=== PATIENT | female | born 1970 | race Caucasian/White ===

== ENCOUNTER 2016-12-15 14:13 | Inpatient (IN) ==
--- NOTE | 2016-12-15 18:16 | General Surg History&Physical ---
<Andrea Mcnally - Last Filed: 12/15/16 18:09> Date of Encounter: 12/15/16 Time of Encounter: 06:00 Assessment and Plan (1) Enterocutaneous fistula Current Visit: Yes Status: Acute The assessment and plan as outlined above was discussed with the patient and/or family members who expressed understanding and agreement. All questions were answered. The patient is severely protein malnourished. Will get PICC line placed. Begin TPN with elemental clear liquid nutritional supplement. When the patient is in an anabolic state will plan for exploratory laparotomy with small bowel resection. The patient understands that this may take up to one week. (2) Protein-calorie malnutrition, severe Current Visit: No Status: Acute The assessment and plan as outlined above was discussed with the patient and/or family members who expressed understanding and agreement. All questions were answered. PICC line to begin TPN with elemental clear liquid nutritional supplement. (3) Chronic pancreatitis Current Visit: No Status: Acute The assessment and plan as outlined above was discussed with the patient and/or family members who expressed understanding and agreement. All questions were answered. Not having active pain at this time. Patient undergoes stenting, which is next due in January. Qualifiers: Pancreatitis type: alcohol induced Qualified Code(s): K86.0 - Alcohol- induced chronic pancreatitis (4) Cirrhosis with alcoholism Current Visit: No Status: Acute The assessment and plan as outlined above was discussed with the patient and/or family members who expressed understanding and agreement. All questions were answered. The patient has not had any alcohol for the past week. She has been started on disulfiram. Qualifiers: Ascites presence: without ascites Qualified Code(s): K70.30 - Alcoholic cirrhosis of liver without ascites (5) Anxiety and depression Current Visit: No Status: Chronic The assessment and plan as outlined above was discussed with the patient and/or family members who expressed understanding and agreement. All questions were answered. The patient was recently started on lamotrigine for mood stabilization. Continue home medications. (6) GERD (gastroesophageal reflux disease) Current Visit: No Status: Chronic The assessment and plan as outlined above was discussed with the patient and/or family members who expressed understanding and agreement. All questions were answered. Continue home medications of protonix. Qualifiers: Esophagitis presence: esophagitis presence not specified Qualified Code(s) : K21.9 - Gastro-esophageal reflux disease without esophagitis History of Present Illness Chief complaint: small bowel problem HPI: Ms. Hernandez is a 46 year old female with PMH of COPD, GERD, HTN, thyroid disease , anxiety, depression, cirrhosis with alcoholism, and chronic pancreatitis who presented to wound clinic for followup of a draining cutaneous fistula. She expressed concern that she really wanted this problem fixed. It was discussed with Dr. De Leon that she would not be able to tolerate the procedure well in her current state of health. It was recommended that she be admitted for PICC line placement for TPN and elemental clear liquid nutritional supplement for several days to a week to increase her strength. Once the patient was in an anabolic state she would undergo exploratory laparotomy with small bowel resection to fix her chronic gastrocutaneous fistula. The patient reports that she has had a problem with her wound since March 2016 and has not had adequate healing. She continues to drain from her fistula. She reports that her appetite and dietary intake has improved since she had last been seen in wound clinic and the patient expressed that she felt as if she was getting better, but her wound would not heal. The patient reports that she has chronic pancreatitis as well and has to have stents replaced every 2 months due to pain. Currently she denies being in any pain, but reports that she feels nervous being in the hospital. She was recently started on lamotrigine and disulfiram and states she has not had any alcohol in the past week. Past Med Surg Social Fam HX - Past Medical History Medical history: asthma, cirrhosis, COPD, GERD, hepatitis, hypertension, thyroid disease, other Psychiatric history: anxiety, depression - Past Surgical History Surgical History: no surgical history, other (pancreatic stent placements) - Social History Smoking Status: Current every day smoker Smokeless Tobacco Status: No Alcohol use: heavy Drug use: none - Family History Grandmother Adopted: No Family Member Ethnicity: Non- Living Status: Hx Family Cardiac Disorders: No Hx Family Respiratory Disorders: No Hx Family Cancer: No Hx Family GI Disorders: No Hx Family Endocrine Disorder: No Hx Family Neuromuscular Disorders: No Hx Family Neurologic Disorders: No Hx Family HEENT Disorders: No Hx Family Autoimmune Disorders: No Medications and Allergies Dicyclomine [Bentyl] 10 mg PO QID 06/06/16 [History] Folic Acid 1 mg PO DAILY 06/06/16 [History] Megestrol Acetate [Megace] 40 mg PO BID 06/06/16 [History] Pantoprazole Sodium [Protonix] 40 mg PO QAM 06/06/16 [History] Docusate Sodium 100 mg PO DAILY 11/17/16 [History] Multivitamin/Iron/Folic Acid [Centrum Complete Multivit Tab] 1 each PO DAILY 03/28 [History] Albuterol Sulfate [Albuterol Inhaler] 2 puff IH Q6H PRN 12/15/16 [History] Budesonide/Formoterol 160/4.5 [Symbicort 160/4.5] 4.5 aerosol IH BID 12/15/16 [ History] Disulfiram [Antabuse] 500 mg PO DAILY 12/15/16 [History] Lamotrigine [Lamictal] 25 mg PO DAILY 12/15/16 [History] Lipase/Protease/Amylase [Creon Dr 12,000 Units Capsule] 1 each PO DAILY [History] Allergies No Known Allergies Allergy (Verified 12/15/16 14:36) Review of Systems All systems PM: A 10-system review of systems was performed and is negative for pertinent findings except as documented above in the HPI. - Constitutional fatigue, headache(s), weakness, no chills, no fever(s) - Cardiovascular dyspnea, no chest pain, no edema, no irregular heart rhythm, no palpitations - Respiratory cough (nonproductive), dyspnea, no wheezing - Gastrointestinal no bloating, no constipation, no diarrhea, no melena, no nausea, no vomiting - Genitourinary Genitourinary: no dysuria - Musculoskeletal muscle cramps (lower extremities) - Integumentary wounds (right groin), no rash - Psychiatric anxiety - Hematologic/Lymphatic easy bruising, no easy bleeding General Surgery Exam Initial Vital Signs Temp Pulse Resp BP Pulse Ox 98.4 F 88 15 143/86 97 12/15/16 14:37 12/15/16 14:37 12/15/16 14:37 12/15/16 14:37 12/15/16 14:37 - General physical appearance cachectic, chronically ill, other (anxious) - Eyes normal ocular movement - ENT normal mucosa, atraumatic, normocephalic - Neck trachea midline - Respiratory normal respiratory effort, clear to auscultation - Cardiovascular Cardiovascular exam: Present: NR, tachycardia, no murmurs/rubs/gallops - Abdomen Abdomen general surgery: Present: bowel sounds present, soft, non tender, wound (right groin. fistula present. not actively draining at this time. mild erythema present surrounding the wound) - Integumentary Integumentary general surgery: Present: warm and dry, other (see wound above) - Neurologic Present: CN 2-12 grossly intact - Musculoskeletal Present: normal posture - Psychiatric Psychiatric general surgery: Present: A&Ox3, other (anxious) Results - Labs All other labs normal. - Attending Attestation I examined this patient and my medical decision-making was reviewed with the PATTERN[employer]/PA/Advanced Practice Nurse/Resident Physician. I agree with the documented findings, disposition and treatment plan as described except to the extent set forth below. <Waqas De Leon - Last Filed: 12/16/16 06:48> Date of Encounter: 12/16/16 History of Present Illness HPI: Ms. Hernandez is a 46 year old female Review of Systems All systems PM: A 10-system review of systems was performed and is negative for pertinent findings except as documented above in the HPI. General Surgery Exam Initial Vital Signs Temp Pulse Resp BP Pulse Ox 98.4 F 88 15 143/86 97 12/15/16 14:37 12/15/16 14:37 12/15/16 14:37 12/15/16 14:37 12/15/16 14:37 Results - Labs 12/15/16 18:08 12/15/16 18:08 Abnormal lab results RBC 3.80 M/mcL (3.82-4.97) L 12/15/16 18:08 RDW 14.7 % (11.5-14.5) H 12/15/16 18:08 Chloride 110 mEq/L (98-109) H 12/15/16 18:08 Glucose 218 mg/dL (70-99) H 12/15/16 18:08 Alkaline Phosphatase 200 Units/L (38-126) H 12/15/16 18:08 Albumin 3.2 g/dL (3.5-5.0) L 12/15/16 18:08 Globulin 3.9 g/dL (2.4-3.5) H 12/15/16 18:08 Albumin/Globulin Ratio 0.8 (1.1-2.2) L 12/15/16 18:08 Ur Specific [place] > 1.030 (1.010-1.025) H 12/15/16 21:25 Urine Glucose (UA) >=1000 mg/dL (Normal) H 12/15/16 21:25 All other labs normal. - Attending Attestation The patient is seen and evaluated. Complex issues with malnutrition secondary to substance abuse, cirrhosis, ETOH withdrawl, incarcerated inguinal hernia and entero-cutaneous fistula. Plan PICC, TPN, Clear liquid complex nutrition. Exploratory laparotomy when stable. Waqas De Leon MD FACS
[2016-12-15] MEDS ORDERED: Albuterol 2.5 MG/3 ML NEBULIZER IH PRN (18:27)
[2016-12-15 18:28] LABS: Basophils % 0.3 %; Eosinophils # 0.3 K/mcL (0.0-0.6); Eosinophils % 2.9 %; Hematocrit 37.4 % (35.3-44.9); Hemoglobin 12.6 g/dL (11.5-15.4); Immature Granulocytes % 0.5 % (0-4); Lymphocytes # 2.3 K/mcL (0.6-4.6); Lymphocytes % 26.6 %; Mean Corpuscular HGB Conc 33.7 g/dL (31.6-35.5); Mean Corpuscular Hemoglobin 33.2 pg (28.0-33.3); Mean Corpuscular Volume 98.4 fL (83.0-100.0); Mean Platelet Volume 9.9 fL (9.4-12.4); Monocytes % 11.7 %; Platelet Count 301 K/mcL (140-400); Red Cell Distribution Width 14.7 % (11.5-14.5)
[2016-12-15 18:32] LABS: INR 1.1; Prothrombin Time 11.7 Seconds (9.4-12.1)
[2016-12-15 18:34] LABS: Activated Partial Thrombo Time 28.6 Seconds (26.0-36.0)
[2016-12-15 18:38] LABS: Alanine Aminotransferase 36 Units/L (0-55); Albumin 3.2 g/dL (3.5-5.0); Albumin/Globulin Ratio 0.8 (1.1-2.2); Alkaline Phosphatase 200 Units/L (38-126); Amylase 41 Units/L (25-125); Aspartate Amino Transferase 18 Units/L (5-34); BUN/Creatinine Ratio 19 (6-26); Bilirubin,Direct 0.1 mg/dL (0.0-0.5); Bilirubin,Indirect 0.1 mg/dL (0.0-1.2); Bilirubin,Total 0.2 mg/dL (0.2-1.2); Blood Urea Nitrogen 12 mg/dL (7-20); Calcium 8.8 mg/dL (8.6-10.8); Carbon Dioxide 20 mEq/L (19-29); Chloride 110 mEq/L (98-109); Globulin 3.9 g/dL (2.4-3.5); Glucose 218 mg/dL (70-99); Lipase 27 Units/L (8-78); Osmolality,Calculated 296 (280-300); Potassium 4.2 mEq/L (3.5-4.5); Sodium 140 mEq/L (136-145); Total Protein 7.1 g/dL (6.0-8.3); eGFR For African Americans > 60 (> 60); eGFR For Non-African Americans > 60 (> 60)
--- NOTE | 2016-12-15 18:47 | Emergency Department Note ---
Disposition Clinical Impression: Fistula, Malnutrition Disposition: Admitted As Inpatient Condition: Good Referrals: Janice Almendarez CNP [Primary Care Provider] - Forms: Work/School Release, ED Satisfaction Letter Abdominal Pain HPI - General Chief Complaint: ED General Medical Stated Complaint: small bowel issues Time Seen by Provider: 12/15/16 17:41 Source: patient Mode of arrival: ambulatory Limitations: no limitations Nursing Notes Reviewed: Yes Vital Signs Reviewed: Yes - History of Present Illness HPI Narrative: Patient is a 46-year-old female with a enterocutaneous fistula is here from wound clinic for hospital admission. She states she has chronic pain in this area. No bleeding or purulent discharge from her fistula. She states she is comfortable at this time has no request for analgesia or anti-emetics. Pt Subjective Complaint: abdominal pain Onset (ago): month(s) Consistency: intermittent Location: RLQ (Right groin) Pain Scale: 0 Quality: aching Radiation: none Improves with: nothing Worsens with: nothing Associated symptoms: Reports: denies other symptoms Treatments prior to arrival: other (Chronic wound care) - Related Data Home Medications Medication Instructions Recorded Confirmed Dicyclomine [Bentyl] 10 mg PO QID 06/06/16 11/17/16 Folic Acid 1 mg PO DAILY 06/06/16 11/17/16 Megestrol Acetate [Megace] 40 mg PO DAILY 06/06/16 11/17/16 Pantoprazole Sodium [Protonix] 40 mg PO QAM 06/06/16 11/17/16 Albuterol Sulfate [Proair 90 mcg IH Q6H 11/17/16 11/17/16 Respiclick] Docusate Sodium 100 mg PO DAILY 11/17/16 11/17/16 Multivitamin/Iron/Folic Acid 1 each PO DAILY 11/17/16 11/17/16 [Centrum Complete Multivit Tab] Previous Rx's Medication Instructions Recorded DiphenhydraMINE [Benadryl] 25 mg PO Q8HR PRN #15 capsule 11/17/16 PredniSONE 60 mg PO DAILY #15 tablet 11/17/16 Allergies Allergy/AdvReac Type Severity Reaction Status Date / Time No Known Allergies Allergy Verified 12/15/16 14:36 All systems ED: reviewed and negative except as stated. Constitutional: Reports: weakness. Denies: fever, chills Gastrointestinal: Denies: nausea, vomiting Abdominal Pain PMH - Past Medical History Medical history: Reports: asthma, cirrhosis, COPD, GERD, hepatitis, hypertension , thyroid disease, other Female Surgical History: Reports: other MUSIC PROFESSOR history: Reports: endometriosis Psychiatric history: Reports: anxiety, depression - Social History Smoking status: Current every day smoker Alcohol use: Reports: heavy Drug use: Reports: none Physical Exam - General Limitations: no limitations General appearance: alert, in no apparent distress - Head Head exam: atraumatic, normocephalic, normal inspection - Eye Eye exam: Present: normal appearance, PERRL, EOMI - Expanded Eye Exam Pupils: Left: reactive - ENT ENT exam: normal exam, normal oropharynx, mucous membranes moist - Expanded ENT Exam External ear exam: Present: normal external inspection Mouth exam: Present: normal external inspection Teeth exam: Present: normal inspection Throat exam: Present: normal inspection - Neck Neck exam: Present: normal inspection, full ROM, trachea midline - Chest Chest inspection: Present: normal inspection, symmetric chest wall rise - Respiratory Respiratory exam: Present: normal lung sounds bilaterally - Cardiovascular Cardiovascular exam: Present: regular rate, normal rhythm, normal heart sounds - Abdominal Exam Abdominal exam: Present: soft, Non-Tender, normal bowel sounds. Absent: guarding, rebound - Extremities Exam Extremities exam: Present: normal inspection, full ROM. Absent: tenderness, pedal edema - Expanded Upper Extremity Exam Shoulder exam: Present: normal inspection, full ROM Arm exam: Present: normal inspection, full ROM Elbow exam: Present: normal inspection, full ROM Forearm/Wrist exam: Present: normal inspection, full ROM Hand exam: Present: normal inspection, full ROM Vascular exam: Normal: capillary refill, radial pulse - Expanded Lower Extremity Exam Hip/Pelvis exam: Present: normal inspection, full ROM Upper leg exam: Present: normal inspection, full ROM Knee exam: Present: normal inspection, full ROM Lower leg exam: Present: normal inspection, full ROM Ankle exam: Present: normal inspection, full ROM Foot/toe exam: Present: normal inspection, full ROM Neurovascular/Tendon exam: Absent: motor deficit, sensory deficit, tendon deficit - Back Exam Back exam: Present: normal inspection, full ROM. Absent: tenderness - Neurological Exam Neurological exam: Present: alert, oriented X3 - Expanded Neurological Exam Patient oriented to: Present: person, place, time Coma Scale Eye Opening: Spontaneous Coma Scale Motor Response: Obeys Commands Coma Scale Verbal Response: Oriented Coma Scale Total: 15 - Psychiatric Psychiatric exam: Present: normal affect, normal mood - Skin Skin exam: Present: warm, dry, intact, normal color Course Vital Signs Temperature 98.4 F 12/15/16 14:37 Pulse Rate 88 12/15/16 14:37 Respiratory Rate 15 12/15/16 14:37 Blood Pressure 143/86 12/15/16 14:37 O2 Sat by Pulse Oximetry 97 12/15/16 14:37 Temperature 98.4 F 12/15/16 14:37 Pulse Rate 88 12/15/16 14:37 Respiratory Rate 15 12/15/16 14:37 Blood Pressure 143/86 12/15/16 14:37 O2 Sat by Pulse Oximetry 97 12/15/16 14:37 Oxygen Delivery Oxygen Delivery Room Air Abdominal Pain - MDM Narrative Medical decision making narrative: DR. CALVILLO TO ADMIT TO HIS SERVICE - Differential Diagnosis Differential Diagnosis: Likely: abdominal pain non-specific, constipation, colonic obstruction, diverticulitis, gastroenteritis, hernia, ischemic bowel - Lab Data Lab results reviewed: Yes I reviewed the patient's lab results. Result diagrams: 12/15/16 18:08 12/15/16 18:08 Lab Results 12/15/16 12/15/16 12/15/16 Range/Units 18:08 18:08 18:08 WBC 8.7 (4.3-11.1) K/mcL RBC 3.80 L (3.82-4.97) M/mcL Hgb 12.6 (11.5-15.4) g/dL Hct 37.4 (35.3-44.9) % MCV 98.4 (83.0-100.0) fL MCH 33.2 (28.0-33.3) pg MCHC 33.7 (31.6-35.5) g/dL RDW 14.7 H (11.5-14.5) % Plt Count 301 (140-400) K/mcL MPV 9.9 (9.4-12.4) fL Immature Gran % 0.5 (0-4) % Seg Neutrophils % 58.0 % Lymphocytes % 26.6 % Monocytes % 11.7 % Eosinophils % 2.9 % Basophils % 0.3 % Neutrophils # 5.0 (1.6-8.9) K/mcL Lymphocytes # 2.3 (0.6-4.6) K/mcL Monocytes # 1.0 (0.0-1.3) K/mcL Eosinophils # 0.3 (0.0-0.6) K/mcL Basophils # 0.0 (0.0-0.2) K/mcL PT 11.7 (9.4-12.1) Seconds INR 1.1 APTT 28.6 (26.0-36.0) Seconds Sodium 140 (136-145) mEq/L Potassium 4.2 (3.5-4.5) mEq/L Chloride 110 H (98-109) mEq/L Carbon Dioxide 20 (19-29) mEq/L BUN 12 (7-20) mg/dL Creatinine 0.62 (0.57-1.11) mg/dL Est GFR ( Amer) > 60 (> 60) Est GFR (Non-Af Amer) > 60 (> 60) BUN/Creatinine Ratio 19 (6-26) Glucose 218 H (70-99) mg/dL Calculated Osmolality 296 (280-300) Calcium 8.8 (8.6-10.8) mg/dL Total Bilirubin 0.2 (0.2-1.2) mg/dL Direct Bilirubin 0.1 (0.0-0.5) mg/dL Indirect Bilirubin 0.1 (0.0-1.2) mg/dL AST 18 (5-34) Units/L ALT 36 (0-55) Units/L Alkaline Phosphatase 200 H (38-126) Units/L Serum Total Protein 7.1 (6.0-8.3) g/dL Albumin 3.2 L (3.5-5.0) g/dL Globulin 3.9 H (2.4-3.5) g/dL Albumin/Globulin Ratio 0.8 L (1.1-2.2) Amylase 41 (25-125) Units/L Lipase 27 (8-78) Units/L Ethyl Alcohol (0-10) mg/dL 12/15/16 Range/Units 18:08 WBC (4.3-11.1) K/mcL RBC (3.82-4.97) M/mcL Hgb (11.5-15.4) g/dL Hct (35.3-44.9) % MCV (83.0-100.0) fL MCH (28.0-33.3) pg MCHC (31.6-35.5) g/dL RDW (11.5-14.5) % Plt Count (140-400) K/mcL MPV (9.4-12.4) fL Immature Gran % (0-4) % Seg Neutrophils % % Lymphocytes % % Monocytes % % Eosinophils % % Basophils % % Neutrophils # (1.6-8.9) K/mcL Lymphocytes # (0.6-4.6) K/mcL Monocytes # (0.0-1.3) K/mcL Eosinophils # (0.0-0.6) K/mcL Basophils # (0.0-0.2) K/mcL PT (9.4-12.1) Seconds INR APTT (26.0-36.0) Seconds Sodium (136-145) mEq/L Potassium (3.5-4.5) mEq/L Chloride (98-109) mEq/L Carbon Dioxide (19-29) mEq/L BUN (7-20) mg/dL Creatinine (0.57-1.11) mg/dL Est GFR ( Amer) (> 60) Est GFR (Non-Af Amer) (> 60) BUN/Creatinine Ratio (6-26) Glucose (70-99) mg/dL Calculated Osmolality (280-300) Calcium (8.6-10.8) mg/dL Total Bilirubin (0.2-1.2) mg/dL Direct Bilirubin (0.0-0.5) mg/dL Indirect Bilirubin (0.0-1.2) mg/dL AST (5-34) Units/L ALT (0-55) Units/L Alkaline Phosphatase (38-126) Units/L Serum Total Protein (6.0-8.3) g/dL Albumin (3.5-5.0) g/dL Globulin (2.4-3.5) g/dL Albumin/Globulin Ratio (1.1-2.2) Amylase (25-125) Units/L Lipase (8-78) Units/L Ethyl Alcohol < 10 (0-10) mg/dL
[2016-12-15] MEDS ORDERED: Ondansetron ODT 4 MG TAB.RAPDIS SL PRN (21:06)
[2016-12-15] MEDS: *HR* OxyCODONE/APAP 5/325 TABLET PO PRN (21:26)
[2016-12-15] MEDS: Nicotine 21 MG PATCH.TD24 TD SCH (21:27)
[2016-12-15 21:37] LABS: Bilirubin,Urine Negative (Negative); Blood,Urine Negative (Negative); Clarity,Urine Clear (Clear); Color,Urine Yellow (Yellow); Glucose,Urine (UA) >=1000 mg/dL (Normal); Ketones,Urine Negative (Negative); Leukocyte Esterase,Urine Negative (Negative); Nitrite,Urine Negative (Negative); PH,Urine 6.5 pH Units (5.0-8.0); Protein,Urine Negative (Neg-Trace); Specific Gravity,Urine > 1.030 (1.010-1.025); Urobilinogen,Urine Normal (Normal)
[2016-12-15] MEDS: 0.9 % Sodium Chloride 1,000 ML IVC SCH (21:50)
[2016-12-16] MEDS: *HR* OxyCODONE/APAP 5/325 TABLET PO PRN ×4 (03:25→21:53)
--- NOTE | 2016-12-16 07:04 | General Surgery Progress Note ---
<Andrea Mcnally - Last Filed: 12/16/16 07:02> Date of Encounter: 12/16/16 Time of Encounter: 07:02 - Assessment and Plan (1) Enterocutaneous fistula Current Visit: Yes Status: Acute When the patient is in an anabolic state will plan for exploratory laparotomy with small bowel resection. The patient understands that this may take up to one week. PICC line to be inserted today. Cloth Printer consulted, will discuss starting the patient on clear elemental supplementation as well to maintain integrity of lymphatics of the bowel. Begin TPN once the PICC line has been placed. (2) Protein-calorie malnutrition, severe Current Visit: No Status: Acute See plan as above. (3) Chronic pancreatitis Current Visit: No Status: Acute Pain well controlled with oral analgesics. Qualifiers: Pancreatitis type: alcohol induced Qualified Code(s): K86.0 - Alcohol- induced chronic pancreatitis (4) Cirrhosis with alcoholism Current Visit: No Status: Acute The patient has not had any alcohol for the past week prior to admission. Librium ordered 10mg TID Qualifiers: Ascites presence: without ascites Qualified Code(s): K70.30 - Alcoholic cirrhosis of liver without ascites (5) Anxiety and depression Current Visit: No Status: Chronic The patient was recently started on lamotrigine for mood stabilization. Continue home medications. (6) GERD (gastroesophageal reflux disease) Current Visit: No Status: Chronic No active symptoms. Continue omeprazole. Qualifiers: Esophagitis presence: esophagitis presence not specified Qualified Code(s) : K21.9 - Gastro-esophageal reflux disease without esophagitis Subjective Patient reports: voiding w/o difficulty, flatus, no bowel movement, afebrile Narrative: This morning the patient states that she is having a little bit of abdominal discomfort. She reports it is the same as the pain she usually has from her chronic pancreatitis. The pain has responded well to oral pain medications. She was not able to sleep well last night, and states since stopping drinking her sleep has been fractured and intermittent. Objective Vital Signs - Last 8 Hours Temp Pulse Resp BP Pulse Ox 12/16/16 02:50 98.4 F 78 14 150/80 96 Intake and Output 12/15/16 12/15/16 12/16/16 15:59 23:59 07:59 Intake Total 480 / 480 Output Total 100 / 100 0 / 0 Balance 380 / 380 0 / 0 Intake: Oral 480 / 480 Output: Urine 100 / 100 0 / 0 Other: Weight 37.149 kg - General physical appearance no distress, cachectic, chronically ill - Eyes normal ocular movement - ENT normal mucosa - Neck Neck exam: trachea midline - Respiratory normal respiratory effort, clear to auscultation - Cardiovascular Cardiovascular exam: Present: RRR - Abdomen Abdomen: Present: bowel sounds present, soft, wound (right groin wound present. No active drainage at this time. Mild amount of surrounding erythema. Unchanged. ) Abdominal Tenderness: epigastic (tenderness to deep palpation) - Integumentary no rash - Neurologic CN 2-12 grossly intact - Musculoskeletal normal posture - Psychiatric oriented to time, oriented to person, oriented to place, speech is normal, memory intact - Labs 12/15/16 18:08 12/15/16 18:08 Consult Discharge Plan - Plan Referrals: Janice Almendarez, PHYSICIAN NON INVASIVE CARDIOLOGIST [Primary Care Provider] - - Attending Attestation I examined this patient and my medical decision-making was reviewed with the BATTERY STACKER/PA/Advanced Practice Nurse/Resident Physician. I agree with the documented findings, disposition and treatment plan as described except to the extent set forth below. <MoisesWaqas T - Last Filed: 12/17/16 06:44> Date of Encounter: 12/17/16 Objective Vital Signs - Last 8 Hours Temp Pulse Resp BP Pulse Ox 12/17/16 03:52 98.1 F 66 20 121/67 96 12/17/16 00:06 98.7 F 62 20 117/68 97 Intake and Output 12/16/16 12/16/16 12/17/16 15:59 23:59 07:59 Intake Total 2196 / 2196 952 / 952 Output Total 1100 / 1100 Balance 1096 / 1096 952 / 952 Intake: IV Fluids 1716 / 1716 112 / 112 0.9 % Sodium Chloride 1, 1716 / 1716 112 / 112 000 ML @ 100 mls/hr IVC . Q10H NICKI Rx#:[id number] Oral 480 / 480 840 / 840 Output: Urine 1100 / 1100 Other: Meal Lunch Dinner Percent of Meal Consumed 0% # Voids 1 1 Weight 39.14 kg Blood Glucose* 126 107 110 Patient Weight 12/17/16 23:59 Weight 39.14 kg - Labs 12/15/16 18:08 12/15/16 18:08 Diabetes panel 12/16/16 Range/Units 10:23 Triglycerides 70 (< 150) mg/dL Calcium panel 12/16/16 12/17/16 Range/Units 10:23 04:15 Phosphorus 3.1 5.9 H D (2.3-4.7) mg/dL - Attending Attestation The patient is seen and evaluated with the resident. Continue nutritional support until in positive nitrogen balance then proceed with surgical correction of the fistula. Agree with documentation Waqas De Leon MD FACS
[2016-12-16] MEDS: lamoTRIgine 25 MG TABLET PO SCH (08:25)
[2016-12-16] MEDS: Nicotine 21 MG PATCH.TD24 TD SCH (08:27)
[2016-12-16] MEDS: 0.9 % Sodium Chloride 1,000 ML IVC SCH ×2 (08:32→17:30)
[2016-12-16 10:56] LABS: Magnesium 1.8 mg/dL (1.6-2.6); Phosphorous 3.1 mg/dL (2.3-4.7)
[2016-12-16] MEDS ORDERED: D10% in Water 500 ML IV PRN (11:09)
[2016-12-16] MEDS ORDERED: Lidocaine -MPF 1% 5 ML AMPUL INFILT ONE (12:19)
[2016-12-16] MEDS ORDERED: *HR* Dextrose 50 % in Water (Syg) 50 ML SYRINGE IVP PRN (12:54)
[2016-12-16] MEDS ORDERED: Dextrose Gel 15 GM PO PRN ×2 (12:54)
[2016-12-16] MEDS ORDERED: D5% in Water 1,000 ML IV PRN (12:54)
[2016-12-16] MEDS ORDERED: Clinimix E 5%-15% SOLUTION 2,000 ML with MVI, adult with vitamin K 10 ML IV SCH (17:00)
[2016-12-16] MEDS: *HR* Heparin 5,000 UNIT/ML VIAL SQ SCH (17:30)
[2016-12-16] MEDS: Insulin LISPRO 300 UNITS/3 ML VIAL SQ SCH ×2 (17:35→21:54)
[2016-12-16] MEDS: Melatonin 3 MG TABLET PO SCH (20:28)
[2016-12-17] MEDS: Insulin LISPRO 300 UNITS/3 ML VIAL SQ SCH ×6 (01:36→21:18)
[2016-12-17] MEDS: *HR* OxyCODONE/APAP 5/325 TABLET PO PRN ×3 (04:56→18:54)
[2016-12-17] MEDS: *HR* Heparin 5,000 UNIT/ML VIAL SQ SCH ×2 (06:06→18:10)
--- NOTE | 2016-12-17 07:40 | General Surgery Progress Note ---
<Andrea Mcnally - Last Filed: 12/17/16 07:44> Date of Encounter: 12/17/16 Time of Encounter: 07:37 - Assessment and Plan (1) Enterocutaneous fistula Current Visit: Yes Status: Acute The patient is tolerating her clear ensure and TPN well. Her prealbumin the morning was normal. She has already progressed to being in an anabolic state. NPO at midnight. Exploratory laparotomy with small bowel resection tomorrow. Continue pain control. Continue GI prophylaxis. Continue DVT prophylaxis. (2) Protein-calorie malnutrition, severe Current Visit: No Status: Acute Good response to clear ensure with TPN. See plan as above. (3) Chronic pancreatitis Current Visit: No Status: Acute Pain well controlled with oral analgesics. Qualifiers: Pancreatitis type: alcohol induced Qualified Code(s): K86.0 - Alcohol- induced chronic pancreatitis (4) Cirrhosis with alcoholism Current Visit: No Status: Acute No symptoms of withdrawal. The patient has not had any alcohol for the past week prior to admission. Librium ordered 10mg TID Qualifiers: Ascites presence: without ascites Qualified Code(s): K70.30 - Alcoholic cirrhosis of liver without ascites (5) Anxiety and depression Current Visit: No Status: Chronic The patient was recently started on lamotrigine for mood stabilization. Continue home medications. (6) GERD (gastroesophageal reflux disease) Current Visit: No Status: Chronic No active symptoms. Continue omeprazole. Qualifiers: Esophagitis presence: esophagitis presence not specified Qualified Code(s) : K21.9 - Gastro-esophageal reflux disease without esophagitis Subjective Patient reports: no new complaints, still having pain, tolerating liquids well, voiding w/o difficulty, flatus, no bowel movement, afebrile Narrative: The patient reports that she was able to get much more sleep last night and is feeling quite good this morning. She is tolerating the clear ensures well and has not had any nausea or vomiting. She has been passing gas, but has not had any bowel movements yet. She states she still has some mild pain in her mid abdomen. Objective Vital Signs - Last 8 Hours Temp Pulse Resp BP Pulse Ox 12/17/16 06:50 98.5 F 66 16 148/85 96 12/17/16 03:52 98.1 F 66 20 121/67 96 12/17/16 00:06 98.7 F 62 20 117/68 97 Intake and Output 12/16/16 12/16/16 12/17/16 15:59 23:59 07:59 Intake Total 2196 / 2196 952 / 952 Output Total 1100 / 1100 0 / 0 Balance 1096 / 1096 952 / 952 0 / 0 Intake: IV Fluids 1716 / 1716 112 / 112 0.9 % Sodium Chloride 1, 1716 / 1716 112 / 112 000 ML @ 100 mls/hr IVC . Q10H [facility] Rx#:[id number] Oral 480 / 480 840 / 840 Output: Urine 1100 / 1100 0 / 0 Other: Meal Lunch Dinner Percent of Meal Consumed 0% # Voids 1 1 Weight 39.14 kg Blood Glucose* 126 107 141 Patient Weight 12/17/16 23:59 Weight 39.14 kg - General physical appearance no distress, cachectic, chronically ill - Eyes normal ocular movement - ENT normal mucosa, atraumatic, normocephalic - Neck Neck exam: trachea midline - Respiratory normal respiratory effort, clear to auscultation - Cardiovascular Cardiovascular exam: Present: RRR, no murmurs/rubs/gallops - Abdomen Abdomen: Present: bowel sounds present, soft, tender (very mild tenderness in the epigastric region) - Integumentary no rash - Neurologic CN 2-12 grossly intact - Musculoskeletal normal posture - Psychiatric oriented to time, oriented to person, oriented to place, speech is normal, memory intact - Labs 12/15/16 18:08 12/15/16 18:08 Diabetes panel 12/16/16 Range/Units 10:23 Triglycerides 70 (< 150) mg/dL Calcium panel 12/16/16 12/17/16 Range/Units 10:23 04:15 Phosphorus 3.1 5.9 H D (2.3-4.7) mg/dL Consult Discharge Plan - Plan Referrals: Janice Almendarez, ENGINE TEST CELL TECHNICIAN [Primary Care Provider] - - Attending Attestation I examined this patient and my medical decision-making was reviewed with the WELDING MACHINE OPERATOR [employer]/PA/Advanced Practice Nurse/Resident Physician. I agree with the documented findings, disposition and treatment plan as described except to the extent set forth below. <Waqas De Leon - Last Filed: 12/17/16 14:13> Date of Encounter: 12/17/16 Objective Vital Signs - Last 8 Hours Temp Pulse Resp BP Pulse Ox 12/17/16 10:30 98.2 F 75 14 144/87 98 12/17/16 06:50 98.5 F 66 16 148/85 96 Intake and Output 12/16/16 12/17/16 12/17/16 23:59 07:59 15:59 Intake Total 952 / 952 1000 / 1000 Output Total 0 / 0 Balance 952 / 952 0 / 0 1000 / 1000 Intake: IV Fluids 112 / 112 1000 / 1000 0.9 % Sodium Chloride 1, 112 / 112 1000 / 1000 000 ML @ 60 mls/hr IVC . [id number] [facility] Rx#: [id number] Oral 840 / 840 Output: Urine 0 / 0 Other: Meal Dinner # Voids 1 1 1 Weight 39.14 kg Blood Glucose* 107 141 85 Patient Weight 12/17/16 23:59 Weight 39.14 kg - Labs 12/15/16 18:08 12/17/16 10:45 Diabetes panel 12/17/16 Range/Units 10:45 Sodium 140 (136-145) mEq/L Potassium 3.8 (3.5-4.5) mEq/L Chloride 115 H (98-109) mEq/L Carbon Dioxide 19 (19-29) mEq/L BUN 9 (7-20) mg/dL Creatinine 0.48 L (0.57-1.11) mg/dL Glucose 92 (70-99) mg/dL Calcium 8.1 L (8.6-10.8) mg/dL Calcium panel 12/17/16 Range/Units 10:45 Calcium 8.1 L (8.6-10.8) mg/dL Phosphorus 3.0 (2.3-4.7) mg/dL Pituitary panel 12/17/16 Range/Units 10:45 Sodium 140 (136-145) mEq/L Potassium 3.8 (3.5-4.5) mEq/L Chloride 115 H (98-109) mEq/L Carbon Dioxide 19 (19-29) mEq/L BUN 9 (7-20) mg/dL Creatinine 0.48 L (0.57-1.11) mg/dL Glucose 92 (70-99) mg/dL Calcium 8.1 L (8.6-10.8) mg/dL Adrenal panel 12/17/16 Range/Units 10:45 Sodium 140 (136-145) mEq/L Potassium 3.8 (3.5-4.5) mEq/L Chloride 115 H (98-109) mEq/L Carbon Dioxide 19 (19-29) mEq/L BUN 9 (7-20) mg/dL Creatinine 0.48 L (0.57-1.11) mg/dL Glucose 92 (70-99) mg/dL Calcium 8.1 L (8.6-10.8) mg/dL - Attending Attestation The patient is seen and evaluated with the resident on morning rounds. Her prealbumin is in anabolic or positive nitrogen balance range and we should be able to go ahead with surgical resection and repair as planned. OR . I discussed risks and benefits with the patient and she wishes to proceed. Continue TPN and elemental Waqas De Leon MD FACS
[2016-12-17] MEDS: Nicotine 21 MG PATCH.TD24 TD SCH (08:44)
[2016-12-17] MEDS: lamoTRIgine 25 MG TABLET PO SCH (08:44)
[2016-12-17] MEDS: 0.9 % Sodium Chloride 1,000 ML IVC SCH (08:56)
[2016-12-17 09:59] LABS: eGFR For African Americans > 60 (> 60); eGFR For Non-African Americans > 60 (> 60)
[2016-12-17 11:30] LABS: BUN/Creatinine Ratio 19 (6-26); Blood Urea Nitrogen 9 mg/dL (7-20); Calcium 8.1 mg/dL (8.6-10.8); Carbon Dioxide 19 mEq/L (19-29); Chloride 115 mEq/L (98-109); Glucose 92 mg/dL (70-99); Osmolality,Calculated 288 (280-300)
[2016-12-17 11:31] LABS: Potassium 3.8 mEq/L (3.5-4.5); Sodium 140 mEq/L (136-145)
[2016-12-17 11:35] LABS: Magnesium 1.7 mg/dL (1.6-2.6)
[2016-12-17 11:38] LABS: Ionized Calcium 1.21 mmol/L (1.15-1.35)
[2016-12-17] MEDS ORDERED: Clinimix E 5%-15% SOLUTION 2,000 ML with MVI, adult with vitamin K 10 ML IV SCH (17:00)
--- NOTE | 2016-12-17 20:44 | Anesthesia Evaluation PreOp ---
Date of Encounter: 12/17/16 Time of Encounter: 20:42 - Past History Planned Operation: Ex lap, small bowel resection, repair R inguinal hernia Cardiac History: Denies any Significant Hx Pulmonary History: Smoker, COPD LAND MANAGER History: Other (anxiety/depression) Other Medical History: Hepatic (cirrhosis with alcoholism), Thyroid, GERD, Other (chronic pancreatitis, protein-calorie malnutrition (severe)) Anesthesia History: No Prior Anesthetic Complications Alcohol Use: heavy Drug use: none Medications and Allergies Dicyclomine [Bentyl] 10 mg PO QID 06/06/16 [History] Folic Acid 1 mg PO DAILY 06/06/16 [History] Megestrol Acetate [Megace] 40 mg PO BID 06/06/16 [History] Pantoprazole Sodium [Protonix] 40 mg PO QAM 06/06/16 [History] Docusate Sodium 100 mg PO DAILY 11/17/16 [History] Multivitamin/Iron/Folic Acid [Centrum Complete Multivit Tab] 1 each PO DAILY 03/28 [History] Albuterol Sulfate [Albuterol Inhaler] 2 puff IH Q6H PRN 12/15/16 [History] Budesonide/Formoterol 160/4.5 [Symbicort 160/4.5] 4.5 aerosol IH BID 12/15/16 [ History] Disulfiram [Antabuse] 500 mg PO DAILY 12/15/16 [History] Lamotrigine [Lamictal] 25 mg PO DAILY 12/15/16 [History] Lipase/Protease/Amylase [Creon Dr 12,000 Units Capsule] 1 each PO DAILY [History] Allergies No Known Allergies Allergy (Verified 12/15/16 14:36) - Meds/Allergy Pre-op Review Medications Reviewed: Yes Allergies Reviewed: Yes Beta Blockers on Current Med List: No Anesthesia Results - Labs 12/15/16 18:08 12/17/16 10:45 Laboratory Tests 12/15/16 12/15/16 18:08 18:08 WBC 8.7 Hgb 12.6 Hct 37.4 Plt Count 301 PT 11.7 INR 1.1 APTT 28.6 - Imaging EKG: report reviewed, image reviewed (ST; R atrial enlargement, L atrial enlargement, possible anterior MA (indeterminate age), inferior MA (probably old )) Anesthesia Exam Last Vital Signs Temp 97.7 F 12/17/16 18:41 Pulse 68 12/17/16 18:41 Resp 18 12/17/16 18:41 BP 133/76 12/17/16 18:41 Pulse Ox 99 12/17/16 18:41 Weight: 39 kg (BMI 16) - HEENT Pupil (Motor): Pupils equal, EOMI Mallampati: II Teeth: Poor dentition Oral Opening: Greater than 3 - LAND MANAGER LOC: Oriented - Cardiac Rhythm: Regular Murmur: None - Pulmonary Breath Sounds: bilateral Clear Respiratory Effort: Symmetrical Anesthesia Assess/Plan ASA Score: 4 Modified Rafia Scale for Level of Consciousness: Cooperative, oriented, and tranquil Anesthetic Plan: General Monitoring Plan: Standard Monitors Recovery Plan: PACU
[2016-12-17] MEDS: Melatonin 3 MG TABLET PO SCH (21:12)
[2016-12-18] MEDS: *HR* Morphine 2 MG/ML SYRINGE IVP PRN ×3 (01:01→11:57)
[2016-12-18] MEDS: Insulin LISPRO 300 UNITS/3 ML VIAL SQ SCH ×6 (01:03→23:52)
[2016-12-18 05:12] LABS: BUN/Creatinine Ratio 29 (6-26); Blood Urea Nitrogen 13 mg/dL (7-20); Calcium 8.1 mg/dL (8.6-10.8); Carbon Dioxide 20 mEq/L (19-29); Chloride 115 mEq/L (98-109); Glucose 95 mg/dL (70-99); Magnesium 1.6 mg/dL (1.6-2.6); Osmolality,Calculated 290 (280-300); Phosphorous 3.2 mg/dL (2.3-4.7); Sodium 140 mEq/L (136-145); eGFR For African Americans > 60 (> 60); eGFR For Non-African Americans > 60 (> 60)
[2016-12-18] MEDS: *HR* Heparin 5,000 UNIT/ML VIAL SQ SCH ×2 (06:45→18:13)
[2016-12-18] MEDS: lamoTRIgine 25 MG TABLET PO SCH (07:43)
[2016-12-18] MEDS: 0.9 % Sodium Chloride 1,000 ML IVC SCH ×2 (07:44→18:12)
[2016-12-18] MEDS: Nicotine 21 MG PATCH.TD24 TD SCH (07:47)
[2016-12-18] MEDS ORDERED: *HR* Succinylcholine 200 MG/10 ML VIAL IVP ONE (12:33)
[2016-12-18] MEDS ORDERED: Dexamethasone 4 MG/ML VIAL ONE (12:33)
[2016-12-18] MEDS ORDERED: *HR* Midazolam HCl 2 MG/2 ML VIAL ONE (12:33)
[2016-12-18] MEDS ORDERED: *HR* FentaNYL (PF) 100 MCG/2 ML VIAL ONE (12:33)
[2016-12-18] MEDS ORDERED: Ondansetron 4 MG/2 ML VIAL ONE (12:33)
[2016-12-18] MEDS ORDERED: CefOXitin 1,000 MG VIAL ONE (13:25)
[2016-12-18] MEDS ORDERED: cefOXitin 2,000 MG in D5% in Water (Mini-Bag+) 100 ML IVPB STA (13:36)
[2016-12-18] MEDS ORDERED: CefOXitin 2,000 MG VIAL IVPB ONE (13:40)
[2016-12-18] MEDS ORDERED: *HR* Morphine 10 MG/ML VIAL ONE (14:44)
--- NOTE | 2016-12-18 15:12 | Operative Note ---
Date of procedure: 12/18/16 Pre-op diagnosis: Enterocutaneous fistula Post-op diagnosis: other (#1 enterocutaneous fistula, #2 right femoral hernia) Procedure: Exploratory laparotomy with small bowel resection. Repair of right femoral hernia. Resection of cutaneous fistula. Anesthesia: JAZIEL Surgeon: Waqas De Leon Estimated blood loss (cc): 20 Specimen: #1 small bowel (Meckel's) #2 cutaneous fistula Condition: stable Disposition: PACU Procedure in Detail: After informed consent the patient was taken to the major operative suite placed in supine position given adequate general anesthetic. Montano catheter was placed. The abdomen and the right groin fistula were prepped and draped in sterile fashion utilizing Betadine solution and standard draping techniques. Timeout was taken and the patient was identified as well as the lateralizing víctor. Made a lower abdominal midline incision and entered the abdomen. The patient had a loop of small bowel entering a inguinal hernia. As I mobilized this area it was obvious that a Meckel's diverticulum of the small bowel was incarcerated in a common femoral hernia forming a fistula to the surface. I mobilized Meckel's diverticulum out of the hernia. The small bowel segment about 8 cm in length was resected. I divided the small bowel proximally and distally with RUPAL. I performed a RUPAL functional end-to-end anastomosis and close the resulting enterotomy with a TA 60. I circumferentially reinforced the staple anastomosis with 3-0 silk seromuscular stitches. The opening in the mesentery was closed with interrupted [id number] 3-0 silk stitches. The abdomen was irrigated with copious amounts of antibiotic containing solution. I closed the midline with looped 0 PDS. Attention was then turned to the right inguinal hernia. I made a oblique incision and resected around the cutaneous fistula. I then divided the external abdominal oblique from lateral to medial down to what I believed was the hernia sac. The hernia sac apex was the fistula the hernia sac was divided and high ligated. This was clearly a femoral hernia. Since the wound was contaminated I could not use mesh. Performed a [place] tissue Noah's ligament repair with 3 stitches of 0 Nurolon. This gave an excellent technical result. The external abdominal oblique was closed with interrupted Vicryl and skin with interrupted Vicryl and skin clips. At the conclusion of the procedure the small bowel resection was completed, the femoral hernia was repaired, and a cutaneous fistula was resected.
[2016-12-18] MEDS ORDERED: Ondansetron 4 MG/2 ML VIAL IVP ONE (15:43)
[2016-12-18] MEDS ORDERED: Ketorolac 30 MG/ML VIAL IVP ONE (15:43)
[2016-12-18] MEDS ORDERED: *HR* Morphine 2 MG/ML SYRINGE IVP PRN (15:43)
[2016-12-18] MEDS ORDERED: cefOXitin 2,000 MG in D5% in Water (Mini-Bag+) 100 ML IVPB SCH (16:00)
--- NOTE | 2016-12-18 16:25 | Anesthesia Evaluation Post Op ---
Date of Encounter: 12/18/16 Time of Encounter: 16:24 - Vital Signs Vital Signs: Vital Signs/O2 Sat/Glucose, Most Current Temp Pulse Resp BP Pulse Ox 12/18/16 16:17 62 20 155/86 93 L 12/18/16 16:07 63 24 152/83 93 L 12/18/16 15:57 97.6 F 65 24 154/82 93 L 12/18/16 15:47 73 20 163/102 98 12/18/16 15:37 69 18 164/92 98 12/18/16 15:27 97.6 F 77 14 168/90 98 - Lungs Lungs: Clear Ascult./Percussion - Airway Airway: Non-obstructed - Cardiovascular Regular Rate - Mental Status Mental Status: Alert & Oriented, Answers Appropriately - Pain Pain Scale: 3 - Nausea Vomiting Nausea Vomiting: Not Present - Hydration Hydration: NPO - Discharge PostOp Status: Transfer Patient to floor
[2016-12-18] MEDS ORDERED: Clinimix E 5%-15% SOLUTION 2,000 ML with MVI, adult with vitamin K 10 ML IV SCH ×2 (17:00→17:03)
[2016-12-18] MEDS ORDERED: Albuterol 2.5 MG/3 ML NEBULIZER IH PRN (17:03)
[2016-12-18] MEDS ORDERED: D5% in Water 1,000 ML IV PRN (17:03)
[2016-12-18] MEDS ORDERED: Dextrose Gel 15 GM PO PRN ×2 (17:03)
[2016-12-18] MEDS ORDERED: D10% in Water 500 ML IV PRN (17:03)
[2016-12-18] MEDS ORDERED: *HR* Dextrose 50 % in Water (Syg) 50 ML SYRINGE IVP PRN (17:03)
[2016-12-18] MEDS: *HR* HYDROmorphone (PF) 1 MG/ML SYRINGE IVP PRN ×3 (18:34→23:50)
[2016-12-19] MEDS: *HR* HYDROmorphone (PF) 1 MG/ML SYRINGE IVP PRN ×10 (03:13→22:14)
[2016-12-19 03:46] LABS: Alanine Aminotransferase 18 Units/L (0-55); Albumin 2.5 g/dL (3.5-5.0); Albumin/Globulin Ratio 0.7 (1.1-2.2); Alkaline Phosphatase 128 Units/L (38-126); Aspartate Amino Transferase 13 Units/L (5-34); BUN/Creatinine Ratio 40 (6-26); Bilirubin,Total 0.3 mg/dL (0.2-1.2); Blood Urea Nitrogen 20 mg/dL (7-20); Calcium 8.2 mg/dL (8.6-10.8); Carbon Dioxide 21 mEq/L (19-29); Chloride 106 mEq/L (98-109); Globulin 3.6 g/dL (2.4-3.5); Glucose 138 mg/dL (70-99); Magnesium 1.7 mg/dL (1.6-2.6); Osmolality,Calculated 285 (280-300); Phosphorous 4.2 mg/dL (2.3-4.7); Potassium 4.2 mEq/L (3.5-4.5); Sodium 135 mEq/L (136-145); Total Protein 6.1 g/dL (6.0-8.3); eGFR For African Americans > 60 (> 60); eGFR For Non-African Americans > 60 (> 60)
[2016-12-19] MEDS: Insulin LISPRO 300 UNITS/3 ML VIAL SQ SCH ×5 (04:36→21:12)
[2016-12-19] MEDS: Ondansetron ODT 4 MG TAB.RAPDIS SL PRN (04:38)
[2016-12-19] MEDS: *HR* Heparin 5,000 UNIT/ML VIAL SQ SCH ×2 (04:38→18:10)
--- NOTE | 2016-12-19 07:23 | General Surgery Progress Note ---
Date of Encounter: 12/19/16 Time of Encounter: 07:15 - Assessment and Plan (1) Enterocutaneous fistula Current Visit: Yes Status: Acute Postop day 1 from small bowel resection as well as repair of right femoral hernia with huslia tissue. We will discontinue the Montano catheter today. There are no bowel sounds. Maintain nothing by mouth and TPN Subjective Narrative: The patient is postop day 1 from small bowel resection as well as repair of right femoral hernia with huslia tissue. She also had resection of the cutaneous fistula. She is doing well overall and is somewhat short of breath. She has baseline COPD. She had no ascites at the time of surgery. And her cirrhosis was not as bad as I had anticipated. Today she is having moderate pain and is being adequately treated. She denies shakes chills or fever. Montano catheter is in place. Objective Vital Signs - Last 8 Hours Temp Pulse Resp BP Pulse Ox 12/19/16 07:09 98.6 F 89 18 160/88 93 L 12/19/16 04:32 99.1 F 92 18 157/87 93 L 12/18/16 23:45 98.4 F 88 16 160/80 95 Intake and Output 12/18/16 12/18/16 12/19/16 15:59 23:59 07:59 Intake Total 100 / 100 605 / 605 869 / 869 Output Total 200 / 200 870 / 870 550 / 550 Balance -100 / -100 -265 / -265 319 / 319 Intake: IV Fluids 100 / 100 605 / 605 869 / 869 Clinimix E 5%-15% 605 / 605 560 / 560 SOLUTION 2,000 ML @ 65 mls/hr IV .Q24H [facility] with M.v.i. Adult 10 ml Rx#: [id number] 0.9 % Sodium Chloride 1, 309 / 309 000 ML @ 35 mls/hr IVC . Q24H [facility] Rx#:[id number] Mefoxin 2,000 MG In 100 / 100 Dextrose 5% (Minibag+) 100 ML 100 ML @ 200 mls/ hr IVPB PREOP [facility] Rx#: [id number] Oral 0 / 0 0 / 0 Output: Urine 180 / 180 Estimated Blood Loss 20 / 20 Urine Amount (Catheter) 170 / 170 Catheter 700 / 700 550 / 550 Other: Meal NPO lunch NPO # Voids 1 Weight 40.993 kg Blood Glucose* 127 179 209 Patient Weight 12/19/16 23:59 Weight 40.993 kg - General physical appearance chronically ill - Respiratory other (Decreased breath sounds from splinting. She has some mild wheezing on the left side. No rales) - Cardiovascular Cardiovascular exam: Present: RRR, no murmurs/rubs/gallops - Abdomen Abdomen: Present: tender (Tender at the incision site. No bowel sounds) - Incision Incision: Present: clean and dry - Psychiatric oriented to time, oriented to person, oriented to place, speech is normal, memory intact - Labs 12/15/16 18:08 12/19/16 03:10 Diabetes panel 12/19/16 Range/Units 03:10 Sodium 135 L (136-145) mEq/L Potassium 4.2 (3.5-4.5) mEq/L Chloride 106 (98-109) mEq/L Carbon Dioxide 21 (19-29) mEq/L BUN 20 (7-20) mg/dL Creatinine 0.50 L (0.57-1.11) mg/dL Glucose 138 H (70-99) mg/dL Calcium 8.2 L (8.6-10.8) mg/dL AST 13 (5-34) Units/L ALT 18 (0-55) Units/L Alkaline Phosphatase 128 H (38-126) Units/L Albumin 2.5 L (3.5-5.0) g/dL Calcium panel 12/19/16 Range/Units 03:10 Calcium 8.2 L (8.6-10.8) mg/dL Phosphorus 4.2 (2.3-4.7) mg/dL Albumin 2.5 L (3.5-5.0) g/dL Pituitary panel 12/19/16 Range/Units 03:10 Sodium 135 L (136-145) mEq/L Potassium 4.2 (3.5-4.5) mEq/L Chloride 106 (98-109) mEq/L Carbon Dioxide 21 (19-29) mEq/L BUN 20 (7-20) mg/dL Creatinine 0.50 L (0.57-1.11) mg/dL Glucose 138 H (70-99) mg/dL Calcium 8.2 L (8.6-10.8) mg/dL Adrenal panel 12/19/16 Range/Units 03:10 Sodium 135 L (136-145) mEq/L Potassium 4.2 (3.5-4.5) mEq/L Chloride 106 (98-109) mEq/L Carbon Dioxide 21 (19-29) mEq/L BUN 20 (7-20) mg/dL Creatinine 0.50 L (0.57-1.11) mg/dL Glucose 138 H (70-99) mg/dL Calcium 8.2 L (8.6-10.8) mg/dL Total Bilirubin 0.3 (0.2-1.2) mg/dL AST 13 (5-34) Units/L ALT 18 (0-55) Units/L Alkaline Phosphatase 128 H (38-126) Units/L Albumin 2.5 L (3.5-5.0) g/dL - VTE Documentation of Mechanical Device: Intermittent pneumatic compression device Consult Discharge Plan - Plan Referrals: Janice Almendarez CNP [Primary Care Provider] -
[2016-12-19] MEDS: Nicotine 21 MG PATCH.TD24 TD SCH (09:53)
[2016-12-19] MEDS ORDERED: 0.9 % Sodium Chloride 1,000 ML ONE (16:30)
[2016-12-19] MEDS: 0.9 % Sodium Chloride 1,000 ML IVC SCH ×2 (16:36→17:01)
[2016-12-19] MEDS ORDERED: Clinimix E 5%-15% SOLUTION 2,000 ML with MVI, adult with vitamin K 10 ML IV SCH (17:00)
--- NOTE | 2016-12-19 17:45 | Electrocardiograph Report ---
[address] [place], [place] [address] Test Date: 2016-12-18 Pat Name: Elle Hernandez Department: 115 Room: 3A Gender: F Artificial Breeding Technician: : 1970 Requested By: Andrea Mcnally Order Number: [id number] Reading MD: Colleen Padilla Measurements Intervals [place] Rate: 71 P: 50 SD: 131 QRS: -34 QRSD: 77 T: 19 QT: 370 QTc: 393 Interpretive Statements SINUS RHYTHM POSSIBLE LEFT ATRIAL ENLARGEMENT MARKED LEFT AXIS DEVIATION Electronically Signed On 12-19-2016 17:43:59 EST by Colleen Padilla
--- NOTE | 2016-12-19 17:46 | Electrocardiograph Report ---
[address] [place], [place] [address] Test Date: 2016-12-18 Pat Name: Elle Hernandez Department: 115 Room: 3A Gender: F Performing Arts Road Manager: : 1970 Requested By: Waqas De Leon Order Number: [id number] Reading MD: Colleen Padilla Measurements Intervals [place] Rate: 76 P: 77 AR: 137 QRS: -29 QRSD: 78 T: 25 QT: 365 QTc: 395 Interpretive Statements SINUS RHYTHM POSSIBLE LEFT ATRIAL ENLARGEMENT LEFT AXIS DEVIATION Electronically Signed On 12-19-2016 17:44:37 EST by Colleen Padilla
[2016-12-20] MEDS: *HR* HYDROmorphone (PF) 1 MG/ML SYRINGE IVP PRN ×13 (00:32→23:00)
[2016-12-20] MEDS: Insulin LISPRO 300 UNITS/3 ML VIAL SQ SCH ×6 (00:33→20:32)
[2016-12-20 04:21] LABS: Basophils % 0.2 %; Eosinophils # 0.1 K/mcL (0.0-0.6); Eosinophils % 1.4 %; Hematocrit 34.6 % (35.3-44.9); Hemoglobin 11.2 g/dL (11.5-15.4); Immature Granulocytes % 0.4 % (0-4); Lymphocytes # 1.9 K/mcL (0.6-4.6); Lymphocytes % 20.5 %; Mean Corpuscular HGB Conc 32.4 g/dL (31.6-35.5); Mean Corpuscular Hemoglobin 32.5 pg (28.0-33.3); Mean Corpuscular Volume 100.3 fL (83.0-100.0); Mean Platelet Volume 10.2 fL (9.4-12.4); Monocytes # 1.3 K/mcL (0.0-1.3); Monocytes % 14.1 %; Neutrophils # 5.8 K/mcL (1.6-8.9); Platelet Count 199 K/mcL (140-400); Red Blood Count 3.45 M/mcL (3.82-4.97); Red Cell Distribution Width 14.5 % (11.5-14.5); Segmented Neutrophils % 63.4 %
[2016-12-20 04:31] LABS: BUN/Creatinine Ratio 32 (6-26); Blood Urea Nitrogen 14 mg/dL (7-20); Carbon Dioxide 23 mEq/L (19-29); Chloride 107 mEq/L (98-109); Glucose 99 mg/dL (70-99); Osmolality,Calculated 287 (280-300); Potassium 3.9 mEq/L (3.5-4.5); Sodium 138 mEq/L (136-145); eGFR For African Americans > 60 (> 60); eGFR For Non-African Americans > 60 (> 60)
[2016-12-20] MEDS: *HR* Heparin 5,000 UNIT/ML VIAL SQ SCH ×2 (05:52→17:46)
[2016-12-20] MEDS: Nicotine 21 MG PATCH.TD24 TD SCH (08:44)
--- NOTE | 2016-12-20 16:59 | General Surgery Progress Note ---
Date of Encounter: 12/20/16 Time of Encounter: 09:30 - Assessment and Plan (1) Enterocutaneous fistula Current Visit: Yes Status: Acute Post op day #2 status post small bowel resection as well as repair of right femoral hernia with lower brule tissue. Continue TPN. NPO. Awaiting return of bowel function. Continue pain control. Continue GI prophylaxis. Continue DVT prophylaxis. On heparin SQ for DVT prophylaxis. (2) Protein-calorie malnutrition, severe Current Visit: No Status: Acute Continue TPN. (3) Cirrhosis with alcoholism Current Visit: No Status: Acute No symptoms of withdrawal. The patient has not had any alcohol for the past week prior to admission. Librium ordered 10mg TID Qualifiers: Ascites presence: without ascites Qualified Code(s): K70.30 - Alcoholic cirrhosis of liver without ascites (4) GERD (gastroesophageal reflux disease) Current Visit: No Status: Chronic No active symptoms. Qualifiers: Esophagitis presence: esophagitis presence not specified Qualified Code(s) : K21.9 - Gastro-esophageal reflux disease without esophagitis (5) Anxiety and depression Current Visit: No Status: Chronic The patient was recently started on lamotrigine for mood stabilization. Continue home medications. Subjective Patient reports: still having pain, voiding w/o difficulty, no flatus, no bowel movement, afebrile Narrative: The patient is anxious and complains of some postoperative pain. She denies any nausea or vomiting, but has not had anything to eat since her surgery as she has not passed any gas or had a bowel movement yet. Objective Vital Signs - Last 8 Hours Temp Pulse Resp BP Pulse Ox 12/20/16 15:38 98.9 F 96 18 112/70 92 L 12/20/16 10:46 97.7 F 95 18 124/80 96 Intake and Output 12/20/16 12/20/16 12/20/16 07:59 15:59 23:59 Intake Total 1314 / 1314 717 / 717 Output Total 350 / 350 700 / 700 Balance 964 / 964 Intake: IV Fluids 1314 / 1314 717 / 717 Clinimix E 5%-15% 669 / 669 717 / 717 SOLUTION 2,000 ML @ 65 mls/hr IV .Q24H [facility] with M.v.i. Adult 10 ml Rx#: [id number] Intralipid 20% 250 ML @ 250 / 250 21 mls/hr IVPB DAILY@17[facility] Rx#:[id number] Oral 0 / 0 Output: Urine 350 / 350 700 / 700 Other: Meal NPO # Bowel Movements 0 Weight 41.816 kg Blood Glucose* 130 139 137 Patient Weight 12/20/16 23:59 Weight 41.816 kg - General physical appearance no distress, cachectic, chronically ill - Eyes normal ocular movement - ENT normal mucosa - Neck Neck exam: trachea midline - Respiratory normal respiratory effort, clear to auscultation - Cardiovascular Cardiovascular exam: Present: RRR, no murmurs/rubs/gallops - Abdomen Abdomen: Present: soft, tender (at surgical wound sites). Absent: bowel sounds present - Incision Incision: Present: clean and dry, intact - Integumentary no rash - Neurologic CN 2-12 grossly intact - Musculoskeletal normal posture - Psychiatric oriented to time, oriented to person, oriented to place, speech is normal, memory intact - Labs 12/20/16 03:55 12/20/16 03:55 Diabetes panel 12/20/16 Range/Units 03:55 Sodium 138 (136-145) mEq/L Potassium 3.9 (3.5-4.5) mEq/L Chloride 107 (98-109) mEq/L Carbon Dioxide 23 (19-29) mEq/L BUN 14 (7-20) mg/dL Creatinine 0.44 L (0.57-1.11) mg/dL Glucose 99 (70-99) mg/dL Calcium 8.0 L (8.6-10.8) mg/dL Calcium panel 12/20/16 Range/Units 03:55 Calcium 8.0 L (8.6-10.8) mg/dL Pituitary panel 12/20/16 Range/Units 03:55 Sodium 138 (136-145) mEq/L Potassium 3.9 (3.5-4.5) mEq/L Chloride 107 (98-109) mEq/L Carbon Dioxide 23 (19-29) mEq/L BUN 14 (7-20) mg/dL Creatinine 0.44 L (0.57-1.11) mg/dL Glucose 99 (70-99) mg/dL Calcium 8.0 L (8.6-10.8) mg/dL Adrenal panel 12/20/16 Range/Units 03:55 Sodium 138 (136-145) mEq/L Potassium 3.9 (3.5-4.5) mEq/L Chloride 107 (98-109) mEq/L Carbon Dioxide 23 (19-29) mEq/L BUN 14 (7-20) mg/dL Creatinine 0.44 L (0.57-1.11) mg/dL Glucose 99 (70-99) mg/dL Calcium 8.0 L (8.6-10.8) mg/dL - VTE Documentation of Mechanical Device: Intermittent pneumatic compression device Consult Discharge Plan - Plan Referrals: Janice Almendarez, SONNY [Primary Care Provider] - - Attending Attestation I examined this patient and my medical decision-making was reviewed with the UPPER CUTTER/PA/Advanced Practice Nurse/Resident Physician. I agree with the documented findings, disposition and treatment plan as described except to the extent set forth below.
[2016-12-20] MEDS ORDERED: Clinimix E 5%-15% SOLUTION 2,000 ML with MVI, adult with vitamin K 10 ML IV SCH (17:00)
[2016-12-21] MEDS: *HR* HYDROmorphone (PF) 1 MG/ML SYRINGE IVP PRN ×7 (00:36→21:17)
[2016-12-21] MEDS: Insulin LISPRO 300 UNITS/3 ML VIAL SQ SCH ×6 (00:38→21:18)
[2016-12-21] MEDS: Ondansetron ODT 4 MG TAB.RAPDIS SL PRN (05:05)
[2016-12-21] MEDS: *HR* Heparin 5,000 UNIT/ML VIAL SQ SCH ×2 (06:09→18:01)
[2016-12-21] MEDS: Nicotine 21 MG PATCH.TD24 TD SCH (09:16)
[2016-12-21] MEDS: *HR* OxyCODONE Immed Rel 5 MG TABLET PO PRN (14:21)
--- NOTE | 2016-12-21 15:14 | General Surgery Progress Note ---
Date of Encounter: 12/21/16 Time of Encounter: 08:40 - Assessment and Plan (1) Enterocutaneous fistula Current Visit: Yes Status: Acute Post op day #3 status post small bowel resection as well as repair of right femoral hernia with minto tissue. Continue TPN. NPO except sips of coffee. Likely start clear liquid diet tomorrow. Pain medication regimen adjusted as the patient seemed overmedicated. Dilaudid now Q3h PRN. Added toradol 15mg IV Q6hr and oxycodone IR 5mg Q6hr. Continue GI prophylaxis. Continue DVT prophylaxis. On heparin SQ for DVT prophylaxis. (2) Protein-calorie malnutrition, severe Current Visit: No Status: Acute Continue TPN. (3) Cirrhosis with alcoholism Current Visit: No Status: Acute No symptoms of withdrawal. The patient has not had any alcohol for the past week prior to admission. Librium ordered 10mg TID Qualifiers: Ascites presence: without ascites Qualified Code(s): K70.30 - Alcoholic cirrhosis of liver without ascites (4) GERD (gastroesophageal reflux disease) Current Visit: No Status: Chronic No active symptoms. Qualifiers: Esophagitis presence: esophagitis presence not specified Qualified Code(s) : K21.9 - Gastro-esophageal reflux disease without esophagitis (5) Anxiety and depression Current Visit: No Status: Chronic The patient was recently started on lamotrigine for mood stabilization. Continue home medications. Subjective Patient reports: still having pain, voiding w/o difficulty, flatus, no bowel movement Narrative: The patient states she is beginning to have an appetite. She is somewhat slow to respond to questions, but complains of pain when her surgical sites are inspected. She denies nausea and vomiting. Objective Vital Signs - Last 8 Hours Temp Pulse Resp BP Pulse Ox 12/21/16 13:48 98.5 F 111 18 102/70 95 12/21/16 11:43 99.2 F 108 18 101/67 95 12/21/16 09:51 98.7 F 127 18 98/64 94 L 12/21/16 07:21 98.1 F 112 18 102/67 94 L Intake and Output 12/20/16 12/21/16 12/21/16 22:59 07:59 15:59 Intake Total 940 / 940 Output Total 800 / 800 Balance 140 / 140 Intake: IV Fluids 940 / 940 Clinimix E 5%-15% 940 / 940 SOLUTION 2,000 ML @ 65 mls/hr IV .Q24H NICKI with M.v.i. Adult 10 ml Rx#: [id number] Intralipid 20% 250 ML @ 21 mls/hr IVPB DAILY@1700 NICKI Rx#:[id number] Output: Urine 800 / 800 Other: Meal NPO Percent of Meal Consumed 0% # Bowel Movements 0 Blood Glucose* 163 - General physical appearance no distress, cachectic, chronically ill - Eyes normal ocular movement bilateral ptosis (with associated sleepiness) - ENT normal mucosa, atraumatic, normocephalic - Neck Neck exam: trachea midline - Respiratory normal respiratory effort, clear to auscultation - Cardiovascular Cardiovascular exam: Present: tachycardia - Abdomen Abdomen: Present: bowel sounds present, soft, tender (expected postoperative tenderness) - Incision Incision: Present: clean and dry, intact, erythema (1cm area of erythema at medial aspect of right inguinal incision, no drainage, no induration) - Integumentary no rash - Neurologic CN 2-12 grossly intact - Musculoskeletal normal posture - Psychiatric oriented to time, oriented to person, oriented to place, speech is normal - Labs 12/20/16 03:55 12/20/16 03:55 - VTE Documentation of Mechanical Device: Intermittent pneumatic compression device Consult Discharge Plan - Plan Referrals: Janice Almendarez CNP [Primary Care Provider] - - Attending Attestation I examined this patient and my medical decision-making was reviewed with the DIRECTOR OF PEDIATRIC REHABILITATION/PA/Advanced Practice Nurse/Resident Physician. I agree with the documented findings, disposition and treatment plan as described except to the extent set forth below.
[2016-12-21] MEDS ORDERED: Clinimix E 5%-15% SOLUTION 2,000 ML with MVI, adult with vitamin K 10 ML IV SCH (17:00)
[2016-12-21] MEDS: Ketorolac 15 MG/ML VIAL IVP SCH (18:01)
[2016-12-22] MEDS: Ketorolac 15 MG/ML VIAL IVP SCH ×4 (00:28→17:25)
[2016-12-22] MEDS: Insulin LISPRO 300 UNITS/3 ML VIAL SQ SCH ×6 (00:28→20:59)
[2016-12-22] MEDS: *HR* HYDROmorphone (PF) 1 MG/ML SYRINGE IVP PRN (03:22)
[2016-12-22 05:58] LABS: Phosphorous 4.6 mg/dL (2.3-4.7)
[2016-12-22] MEDS: *HR* Heparin 5,000 UNIT/ML VIAL SQ SCH ×2 (06:25→17:25)
--- NOTE | 2016-12-22 07:32 | General Surgery Progress Note ---
<James Funez - Last Filed: 12/22/16 13:57> Date of Encounter: 12/22/16 Time of Encounter: 07:29 - Assessment and Plan (1) Enterocutaneous fistula Current Visit: Yes Status: Acute Post op day #4 s/p small bowel resection as well as repair of right femoral hernia with lower el[place] tissue. Advance to clear liquid diet. Pain medication regimen adjusted. Oxycodone 5mg q6h prn pain (6-10) Walk in hallway Continue GI prophylaxis. Continue DVT prophylaxis, heparin subq q12h (2) Protein-calorie malnutrition, severe Current Visit: No Status: Acute continue TPN (3) Anxiety and depression Current Visit: No Status: Chronic The patient was recently started on lamotrigine for mood stabilization. Continue home medications. (4) GERD (gastroesophageal reflux disease) Current Visit: No Status: Chronic No active symptoms. Qualifiers: Esophagitis presence: esophagitis presence not specified Qualified Code(s) : K21.9 - Gastro-esophageal reflux disease without esophagitis (5) Cirrhosis with alcoholism Current Visit: No Status: Acute No symptoms of withdrawal. The patient has not had any alcohol for the past week prior to admission. Librium ordered 10mg TID Qualifiers: Ascites presence: without ascites Qualified Code(s): K70.30 - Alcoholic cirrhosis of liver without ascites Subjective Patient reports: still having pain, flatus, no bowel movement Narrative: Patient seen and examined at bedside. The patient states she is hungry. She is somewhat slow to respond to questions, but complains of pain when her surgical sites are inspected. She denies nausea and vomiting. Objective Vital Signs - Last 8 Hours Temp Pulse Resp BP Pulse Ox 12/22/16 05:09 98.6 F 92 16 102/67 97 12/22/16 00:27 99.1 F 113 16 108/72 91 L Intake and Output 12/21/16 12/21/16 12/22/16 15:59 23:59 07:59 Intake Total 940 / 940 398 / 398 657 / 657 Output Total 800 / 800 500 / 500 450 / 450 Balance 140 / 140 -102 / -102 207 / 207 Intake: IV Fluids 940 / 940 398 / 398 657 / 657 Clinimix E 5%-15% 940 / 940 325 / 325 497 / 497 SOLUTION 2,000 ML @ 65 mls/hr IV .Q24H NICKI with M.v.i. Adult 10 ml Rx#: [id number] Intralipid 20% 250 ML @ 73 / 73 160 / 160 21 mls/hr IVPB DAILY@1700 NICKI Rx#:[id number] Output: Urine 800 / 800 500 / 500 450 / 450 Other: Meal NPO NPO Percent of Meal Consumed 0% # Voids 1 # Bowel Movements 0 Blood Glucose* 163 173 128 - Additional Exam - General physical appearance no distress, cachectic, chronically ill - Eyes normal ocular movement bilateral ptosis (with associated sleepiness) - ENT normal mucosa, atraumatic, normocephalic - Neck Neck exam: trachea midline - Respiratory normal respiratory effort, clear to auscultation - Cardiovascular Cardiovascular exam: NSR - Abdomen Abdomen: Present: bowel sounds present, soft, tender (expected postoperative tenderness) - Incision Incision: Present: clean and dry, intact, erythema (1cm area of erythema at medial aspect of right inguinal incision, no drainage, no induration) - Integumentary no rash - Neurologic CN 2-12 grossly intact - Musculoskeletal normal posture - Psychiatric oriented to time, oriented to person, oriented to place, speech is normal - Labs 12/20/16 03:55 12/20/16 03:55 Calcium panel 12/22/16 Range/Units 05:15 Phosphorus 4.6 (2.3-4.7) mg/dL - VTE Documentation of Mechanical Device: Intermittent pneumatic compression device Consult Discharge Plan - Plan Referrals: Janice Almendarez, SHOVELER [Primary Care Provider] - <Waqas De Leon - Last Filed: 12/22/16 14:06> - Assessment and Plan (1) Enterocutaneous fistula Current Visit: Yes Status: Acute Objective Vital Signs - Last 8 Hours Temp Pulse Resp BP Pulse Ox 12/22/16 11:03 98.0 F 102 16 99/68 94 L Intake and Output 12/21/16 12/22/16 12/22/16 23:59 07:59 15:59 Intake Total 398 / 398 657 / 657 720 / 720 Output Total 500 / 500 450 / 450 400 / 400 Balance -102 / -102 207 / 207 320 / 320 Intake: IV Fluids 398 / 398 657 / 657 Clinimix E 5%-15% 325 / 325 497 / 497 SOLUTION 2,000 ML @ 65 mls/hr IV .Q24H NICKI with M.v.i. Adult 10 ml Rx#: [id number] Intralipid 20% 250 ML @ 73 / 73 160 / 160 21 mls/hr IVPB DAILY@1700 NICKI Rx#:[id number] Oral 720 / 720 Output: Urine 500 / 500 450 / 450 400 / 400 Other: Meal NPO Dinner Percent of Meal Consumed 0% # Voids 1 Blood Glucose* 173 128 152 - Labs 12/20/16 03:55 12/20/16 03:55 Calcium panel 12/22/16 Range/Units 05:15 Phosphorus 4.6 (2.3-4.7) mg/dL - Attending Attestation I examined this patient and my medical decision-making was reviewed with the COMMERCIAL MANAGEMENT ACCOUNTANT/PA/Advanced Practice Nurse/Resident Physician. I agree with the documented findings, disposition and treatment plan as described except to the extent set forth below. The patient is seen and evaluated on morning rounds. She has excellent bowel sounds. There is no nausea or vomiting. Her pain control as moderate. Both incisions appear to be healing normally. At this point we will advance her to clear liquid diet as well as oral pain medicine. Agree with above documentation. Waqas De Leon MD FACS
[2016-12-22] MEDS: *HR* OxyCODONE Immed Rel 5 MG TABLET PO PRN ×3 (08:30→20:55)
[2016-12-22] MEDS: Nicotine 21 MG PATCH.TD24 TD SCH (08:30)
[2016-12-22] MEDS ORDERED: Clinimix E 5%-15% SOLUTION 2,000 ML with MVI, adult with vitamin K 10 ML IV SCH (17:00)
[2016-12-23] MEDS: Ketorolac 15 MG/ML VIAL IVP SCH ×4 (00:03→16:56)
[2016-12-23] MEDS: Insulin LISPRO 300 UNITS/3 ML VIAL SQ SCH ×6 (01:02→21:12)
[2016-12-23] MEDS: *HR* OxyCODONE Immed Rel 5 MG TABLET PO PRN ×4 (04:30→22:06)
[2016-12-23] MEDS: *HR* Heparin 5,000 UNIT/ML VIAL SQ SCH ×2 (05:13→17:38)
[2016-12-23 05:51] LABS: BUN/Creatinine Ratio 28 (6-26); Blood Urea Nitrogen 13 mg/dL (7-20); Calcium 8.7 mg/dL (8.6-10.8); Carbon Dioxide 23 mEq/L (19-29); Chloride 108 mEq/L (98-109); Glucose 135 mg/dL (70-99); Magnesium 1.9 mg/dL (1.6-2.6); Osmolality,Calculated 292 (280-300); Phosphorous 4.2 mg/dL (2.3-4.7); Sodium 140 mEq/L (136-145); eGFR For African Americans > 60 (> 60); eGFR For Non-African Americans > 60 (> 60)
[2016-12-23] MEDS ORDERED: Bisacodyl 10 MG RECTAL SUPPOSITORY RC PRN (07:11)
--- NOTE | 2016-12-23 07:14 | General Surgery Progress Note ---
Date of Encounter: 12/23/16 Time of Encounter: 07:00 - Assessment and Plan (1) Enterocutaneous fistula Current Visit: Yes Status: Acute Postop day 1 from small bowel resection as well as repair of right femoral hernia with [place]ie ira tissue. We will discontinue the Montano catheter today. There are no bowel sounds. Maintain nothing by mouth and TPN 12/23/2016. The patient is doing well today with flatus. She is afebrile. There is no nausea or vomiting. She has good bowel sounds. We will advance to full liquids. She is having incisional pain. We will increase her oral pain medicine to make her more comfortable for ambulation. Maintain TPN until regular diet as tolerated. Subjective Narrative: The patient complains of abdominal pain at the incision site. The 5 mg pain medicine every 6 is not adequate. We will move to 10 mg every 4 when necessary. She is having flatus. There is no nausea or vomiting. She is afebrile. She has had no bowel movement yet. We will advance to full liquids. Incisions look good. Objective Vital Signs - Last 8 Hours Temp Pulse Resp BP Pulse Ox 12/23/16 00:15 98.1 F 88 16 115/69 94 L Intake and Output 12/22/16 12/22/16 12/23/16 15:59 23:59 07:59 Intake Total 720 / 720 1828 / 1828 200 / 200 Output Total 400 / 400 1500 / 1500 875 / 875 Balance 320 / 320 328 / 328 -675 / -675 Intake: IV Fluids 1228 / 1228 Clinimix E 5%-15% 1228 / 1228 SOLUTION 2,000 ML @ 65 mls/hr IV .Q24H NICKI with M.v.i. Adult 10 ml Rx#: [id number] Oral 720 / 720 600 / 600 200 / 200 Output: Urine 400 / 400 1500 / 1500 875 / 875 Other: Meal Dinner Percent of Meal Consumed 0% Weight 36.911 kg Blood Glucose* 227 121 162 Patient Weight 12/23/16 23:59 Weight 36.911 kg - General physical appearance well developed, chronically ill - Respiratory normal expansion, normal respiratory effort, clear to percussion, clear to auscultation - Cardiovascular Cardiovascular exam: Present: RRR, no murmurs/rubs/gallops - Abdomen Abdomen: Present: bowel sounds present, soft, non tender - Incision Incision: Present: clean and dry - Psychiatric oriented to time, oriented to person, oriented to place, speech is normal, memory intact - Labs 12/20/16 03:55 12/23/16 04:57 Diabetes panel 12/23/16 Range/Units 04:57 Sodium 140 (136-145) mEq/L Potassium 4.0 (3.5-4.5) mEq/L Chloride 108 (98-109) mEq/L Carbon Dioxide 23 (19-29) mEq/L BUN 13 (7-20) mg/dL Creatinine 0.46 L (0.57-1.11) mg/dL Glucose 135 H (70-99) mg/dL Calcium 8.7 (8.6-10.8) mg/dL Calcium panel 12/23/16 Range/Units 04:57 Calcium 8.7 (8.6-10.8) mg/dL Phosphorus 4.2 (2.3-4.7) mg/dL Pituitary panel 12/23/16 Range/Units 04:57 Sodium 140 (136-145) mEq/L Potassium 4.0 (3.5-4.5) mEq/L Chloride 108 (98-109) mEq/L Carbon Dioxide 23 (19-29) mEq/L BUN 13 (7-20) mg/dL Creatinine 0.46 L (0.57-1.11) mg/dL Glucose 135 H (70-99) mg/dL Calcium 8.7 (8.6-10.8) mg/dL Adrenal panel 12/23/16 Range/Units 04:57 Sodium 140 (136-145) mEq/L Potassium 4.0 (3.5-4.5) mEq/L Chloride 108 (98-109) mEq/L Carbon Dioxide 23 (19-29) mEq/L BUN 13 (7-20) mg/dL Creatinine 0.46 L (0.57-1.11) mg/dL Glucose 135 H (70-99) mg/dL Calcium 8.7 (8.6-10.8) mg/dL - VTE Documentation of Mechanical Device: Intermittent pneumatic compression device Consult Discharge Plan - Plan Referrals: Janice Almendarez, SONNY [Primary Care Provider] -
[2016-12-23] MEDS: Nicotine 21 MG PATCH.TD24 TD SCH (09:09)
[2016-12-23] MEDS ORDERED: Clinimix E 5%-15% SOLUTION 2,000 ML with MVI, adult with vitamin K 10 ML IV SCH (17:00)
[2016-12-24] MEDS: Ketorolac 15 MG/ML VIAL IVP SCH ×5 (00:09→23:35)
[2016-12-24] MEDS: Insulin LISPRO 300 UNITS/3 ML VIAL SQ SCH ×6 (00:34→20:14)
[2016-12-24] MEDS: *HR* Heparin 5,000 UNIT/ML VIAL SQ SCH ×2 (05:49→17:39)
--- NOTE | 2016-12-24 08:14 | General Surgery Progress Note ---
<James Funez - Last Filed: 12/24/16 08:12> Date of Encounter: 12/24/16 Time of Encounter: 08:12 - Assessment and Plan (1) Enterocutaneous fistula Current Visit: Yes Status: Acute Post op day #6 s/p small bowel resection as well as repair of right femoral hernia with teller tissue. Continue clear liquid diet. On TPN. Will continue until patient can tolerate regular diet. Oxycodone 10 mg q4h prn pain (6-10) Walk in hallway Continue GI prophylaxis. Continue DVT prophylaxis, heparin subq q12h (2) Protein-calorie malnutrition, severe Current Visit: No Status: Acute continue TPN (3) Anxiety and depression Current Visit: No Status: Chronic The patient was recently started on lamotrigine for mood stabilization. Continue home medications. (4) GERD (gastroesophageal reflux disease) Current Visit: No Status: Chronic No active symptoms. Qualifiers: Esophagitis presence: esophagitis presence not specified Qualified Code(s) : K21.9 - Gastro-esophageal reflux disease without esophagitis (5) Cirrhosis with alcoholism Current Visit: No Status: Acute No symptoms of withdrawal. The patient has not had any alcohol for the past week prior to admission. Librium ordered 10mg TID Qualifiers: Ascites presence: without ascites Qualified Code(s): K70.30 - Alcoholic cirrhosis of liver without ascites Subjective Patient reports: still having pain, no bowel movement Narrative: Patient seen and examined at bedside. Still complaining of abdominal pain. Her pain medicine was increased to 10mg q4h for better control. She has a hx of substance abuse so will not increase pain medicine further at this time. No BM yet. No nausea or vomiting. Afebrile. Objective Vital Signs - Last 8 Hours Temp Pulse Resp BP Pulse Ox 12/24/16 04:25 97.6 F 86 16 106/69 96 12/24/16 00:30 98.0 F 97 14 113/71 97 Intake and Output 12/23/16 12/24/16 12/24/16 23:59 07:59 15:59 Intake Total 720 / 720 720 / 720 Output Total 700 / 700 200 / 200 Balance 520 / 520 Intake: Oral 720 / 720 720 / 720 Output: Urine 700 / 700 200 / 200 Other: Blood Glucose* 145 169 - Additional Exam - General physical appearance well developed, chronically ill - Respiratory normal expansion, normal respiratory effort, clear to percussion, clear to auscultation - Cardiovascular Cardiovascular exam: Present: RRR, no murmurs/rubs/gallops - Abdomen Abdomen: Present: bowel sounds present, soft, non tender - Incision Incision: Present: clean and dry - Psychiatric oriented to time, oriented to person, oriented to place, speech is normal, memory intact - Labs 12/20/16 03:55 12/23/16 04:57 Diabetes panel 12/24/16 Range/Units 04:10 Triglycerides 47 (< 150) mg/dL - VTE Documentation of Mechanical Device: Intermittent pneumatic compression device Consult Discharge Plan - Plan Referrals: Janice Almendarez, FOIL CUTTER [Primary Care Provider] - <Waqas De Leon - Last Filed: 12/24/16 13:46> - Assessment and Plan (1) Enterocutaneous fistula Current Visit: Yes Status: Acute Objective Vital Signs - Last 8 Hours Temp Pulse Resp BP Pulse Ox 12/24/16 12:02 98.6 F 93 18 113/73 93 L 12/24/16 08:10 98.3 F 87 18 129/81 93 L Intake and Output 12/23/16 12/24/16 12/24/16 23:59 07:59 15:59 Intake Total 720 / 720 720 / 720 450 / 450 Output Total 700 / 700 200 / 200 800 / 800 Balance 20 520 / 520 -350 / -350 Intake: Oral 720 / 720 720 / 720 450 / 450 Output: Urine 700 / 700 200 / 200 800 / 800 Other: Blood Glucose* 145 169 127 - Labs 12/20/16 03:55 12/23/16 04:57 Diabetes panel 12/24/16 Range/Units 04:10 Triglycerides 47 (< 150) mg/dL - Attending Attestation I examined this patient and my medical decision-making was reviewed with the CONFIGURATION MANAGEMENT MANAGER/PA/Advanced Practice Nurse/Resident Physician. I agree with the documented findings, disposition and treatment plan as described except to the extent set forth below. The patient is seen and evaluated on morning rounds with the resident. pain controlis poor but may be related to past substance abuse. good bowel sounds. incisions clean and dry. dulcolax and reglan to stimulate colon activity Waqas De Leon MD FACS
[2016-12-24] MEDS: Nicotine 21 MG PATCH.TD24 TD SCH (09:37)
[2016-12-24] MEDS: *HR* OxyCODONE Immed Rel 5 MG TABLET PO PRN ×4 (09:37→21:51)
[2016-12-24] MEDS: Metoclopramide 20 MG in 0.9 % Sodium Chloride 50 ML IVPB SCH ×3 (09:38→23:31)
[2016-12-24] MEDS ORDERED: Clinimix E 5%-15% SOLUTION 2,000 ML with MVI, adult with vitamin K 10 ML IV SCH (17:00)
[2016-12-24 22:17] LABS: Basophils % 0.4 %; Eosinophils # 0.3 K/mcL (0.0-0.6); Eosinophils % 2.8 %; Hematocrit 35.6 % (35.3-44.9); Hemoglobin 11.4 g/dL (11.5-15.4); Immature Granulocytes % 0.7 % (0-4); Lymphocytes # 2.2 K/mcL (0.6-4.6); Lymphocytes % 21.5 %; Mean Corpuscular Hemoglobin 31.8 pg (28.0-33.3); Mean Corpuscular Volume 99.4 fL (83.0-100.0); Mean Platelet Volume 10.6 fL (9.4-12.4); Monocytes # 1.1 K/mcL (0.0-1.3); Monocytes % 10.7 %; Neutrophils # 6.4 K/mcL (1.6-8.9); Platelet Count 292 K/mcL (140-400); Red Blood Count 3.58 M/mcL (3.82-4.97); Red Cell Distribution Width 13.8 % (11.5-14.5); Segmented Neutrophils % 63.9 %
[2016-12-25] MEDS: Insulin LISPRO 300 UNITS/3 ML VIAL SQ SCH ×4 (00:38→11:48)
[2016-12-25] MEDS: *HR* OxyCODONE Immed Rel 5 MG TABLET PO PRN ×2 (04:30→12:03)
[2016-12-25] MEDS: Ketorolac 15 MG/ML VIAL IVP SCH ×2 (05:00→11:50)
[2016-12-25] MEDS: *HR* Heparin 5,000 UNIT/ML VIAL SQ SCH (06:09)
[2016-12-25] MEDS: Metoclopramide 20 MG in 0.9 % Sodium Chloride 50 ML IVPB SCH (08:37)
[2016-12-25] MEDS: Nicotine 21 MG PATCH.TD24 TD SCH (08:37)
[2016-12-25 12:15] VITALS: BP 100/63
--- NOTE | 2016-12-25 14:11 | Discharge Summary ---
<James Funez - Last Filed: 12/25/16 14:47> Date of Encounter: 12/25/16 Time of Encounter: 14:05 - Discharge Diagnosis (1) Enterocutaneous fistula Priority: Primary Status: Resolved (2) Protein-calorie malnutrition, severe Priority: Secondary Status: Acute (3) Anxiety and depression Priority: Secondary Status: Chronic (4) GERD (gastroesophageal reflux disease) Priority: Secondary Status: Chronic Qualifiers: Esophagitis presence: esophagitis presence not specified Qualified Code(s) : K21.9 - Gastro-esophageal reflux disease without esophagitis (5) Cirrhosis with alcoholism Priority: Secondary Status: Acute Qualifiers: Ascites presence: without ascites Qualified Code(s): K70.30 - Alcoholic cirrhosis of liver without ascites - Discharge Medications Prescriptions: OxyCODONE Immed Rel [Roxicodone 5 MG] 10 mg PO Q6HR PRN #49 tablet PRN Reason: Severe Pain Home Medications: Dicyclomine [Bentyl] 10 mg PO QID 06/06/16 [History] Folic Acid 1 mg PO DAILY 06/06/16 [History] Megestrol Acetate [Megace] 40 mg PO BID 06/06/16 [History] Pantoprazole Sodium [Protonix] 40 mg PO QAM 06/06/16 [History] Docusate Sodium 100 mg PO DAILY 11/17/16 [History] Multivitamin/Iron/Folic Acid [Centrum Complete Multivit Tab] 1 each PO DAILY 03/28 [History] Albuterol Sulfate [Albuterol Inhaler] 2 puff IH Q6H PRN 12/15/16 [History] Budesonide/Formoterol 160/4.5 [Symbicort 160/4.5] 4.5 aerosol IH BID 12/15/16 [ History] Disulfiram [Antabuse] 500 mg PO DAILY 12/15/16 [History] Lamotrigine [Lamictal] 25 mg PO DAILY 12/15/16 [History] Lipase/Protease/Amylase [Creon Dr 12,000 Units Capsule] 1 each PO BID #0 [Rx] OxyCODONE Immed Rel [Roxicodone 5 MG] 10 mg PO Q6HR PRN #49 tablet 12/25/16 [Rx] Allergies/Adverse Reactions: Allergies No Known Allergies Allergy (Verified 12/15/16 14:36) General Surgery Exam Initial Vital Signs Temp Pulse Resp BP Pulse Ox 98.4 F 88 15 143/86 97 12/15/16 14:37 12/15/16 14:37 12/15/16 14:37 12/15/16 14:37 12/15/16 14:37 - General physical appearance well developed, no distress, cachectic - Eyes normal ocular movement - ENT normal mucosa, atraumatic, normocephalic - Neck trachea midline - Respiratory normal respiratory effort, clear to auscultation - Cardiovascular Cardiovascular exam: Present: RRR - Abdomen Abdomen general surgery: Present: bowel sounds present, soft, tender (expected post-operative tenderness), wound (right groin with small amount of serous drainage noted; no surrounding erythema or induration) - Incision Incision: Present: clean and dry (midline), intact - Integumentary Integumentary general surgery: Present: warm and dry - Neurologic Present: CN 2-12 grossly intact - Musculoskeletal Present: normal gait, normal posture - Psychiatric Psychiatric general surgery: Present: appropriate, oriented to person, oriented to place, oriented to time, speech is normal, memory intact Date of admission: 12/16/16 06:49 Primary care physician: Janice Almendarez Consults: 12/16/16 10:09 Consult to Manager Assurance [CONS] Routine Reason for SW Consult: Pt alcoholic, poor nutrition 12/16/16 12:19 Consult to Invasive Line Access Team [CONS] Routine Reason for Consult: Picc Line Insertion Line Type: PICC 12/19/16 10:30 Consult to Occupational Therapy [CONS] Routine Comment: Evaluate, develop and implement POC Consult to Physical Therapy [CONS] Routine Comment: Evaluate, develop and implement POC Discharging clinician: Waqas De Leon Anticipated date of discharge: 12/25/16 - Patient Status Disposition: Home Health Service Condition: Good Functional capacity at discharge: independent ambulation Overall status at discharge: patient is progressing back to baseline - Discharge Instructions Instructions: Pancreatitis (DC) Follow Up With: Waqas De Leon MD [Partnered Physician] - 01/06/17 8:55 am Additional Instructions: Activity Restrictions: May shower, no tub bath X 2 weeks Wash incisions with soap and water and pat dry daily Right groin wound- cleanse with soap and water, pack with iodoform gauze, cover with 4X4 gauze, tape to secure daily No lifting/pushing/pulling greater than 15 lb. for a total of 6 weeks from the date of surgery No driving until off narcotics for at least 24 hours and able to safely react in the car May climb stairs No alcohol consumption - Diet and Activity Activity: other (See additional instructions above) Diet: advance to your usual diet - Hospital Course Hospital course: Ms. Hernandez is a 46 year old female with PMH of COPD, GERD, HTN, thyroid disease , anxiety, depression, cirrhosis with alcoholism, and chronic pancreatitis who presented to wound clinic for followup of a draining cutaneous fistula. She expressed concern that she really wanted this problem fixed. It was discussed with Dr. De Leon that she would not be able to tolerate the procedure well in her current state of health. It was recommended that she be admitted for PICC line placement for TPN and elemental clear liquid nutritional supplement for several days to a week to increase her strength. Once the patient was in an anabolic state she would undergo exploratory laparotomy with small bowel resection to fix her chronic gastrocutaneous fistula. The patient reports that she has had a problem with her wound since March 2016 and has not had adequate healing. She continues to drain from her fistula. She reports that her appetite and dietary intake has improved since she had last been seen in wound clinic and the patient expressed that she felt as if she was getting better, but her wound would not heal. The patient reports that she has chronic pancreatitis as well and has to have stents replaced every 2 months due to pain. Currently she denies being in any pain, but reports that she feels nervous being in the hospital. She was recently started on lamotrigine and disulfiram and states she has not had any alcohol in the past week. Final diagnosis: Enterocutenous fistula She was given TPN to build her nutritional level upon admission. After it was deemed she was in a metabolically acceptable state she was taken to the operating room. After informed consent the patient was taken to the major operative suite placed in supine position given adequate general anesthetic. Montano catheter was placed. The abdomen and the right groin fistula were prepped and draped in sterile fashion utilizing Betadine solution and standard draping techniques. Timeout was taken and the patient was identified as well as the lateralizing víctor. Made a lower abdominal midline incision and entered the abdomen. The patient had a loop of small bowel entering a inguinal hernia. As I mobilized this area it was obvious that a Meckel's diverticulum of the small bowel was incarcerated in a common femoral hernia forming a fistula to the surface. I mobilized Meckel's diverticulum out of the hernia. The small bowel segment about 8 cm in length was resected. I divided the small bowel proximally and distally with RUPAL. I performed a RUPAL functional end-to-end anastomosis and close the resulting enterotomy with a TA 60. I circumferentially reinforced the staple anastomosis with 3-0 silk seromuscular stitches. The opening in the mesentery was closed with interrupted [id number]-[id number] 3-0 silk stitches. The abdomen was irrigated with copious amounts of antibiotic containing solution. I closed the midline with looped 0 PDS. Attention was then turned to the right inguinal hernia. I made a oblique incision and resected around the cutaneous fistula. I then divided the external abdominal oblique from lateral to medial down to what I believed was the hernia sac. The hernia sac apex was the fistula the hernia sac was divided and high ligated. This was clearly a femoral hernia. Since the wound was contaminated I could not use mesh. Performed a [place] tissue Noah's ligament repair with 3 stitches of 0 Nurolon. This gave an excellent technical result. The external abdominal oblique was closed with interrupted Vicryl and skin with interrupted Vicryl and skin clips. At the conclusion of the procedure the small bowel resection was completed, the femoral hernia was repaired, and a cutaneous fistula was resected. Post operatively TPN was continued and she was maintained NPO while her bowel function returned. Her diet was slowly advanced with return of bowel function and TPN was weaned. Her pain was controlled during her stay. She was started on Librium while inpatient as she was previously a heavy drinker , and had just stopped drinking prior to admission. She had no complications from the cessation of alcohol. She did have a post-operative seroma associated with the right groin incision. [place] were removed and packing was ordered. Will need dressing changes daily for the next 10 days. Her total LOS was 10 days. - Time Spent with Patient Total time spent providing and/or coordinating discharge services: Less than 30 minutes Labs on day of discharge: Labs from last 24 hours 12/25/16 12/25/16 12/25/16 08:13 04:38 00:31 WBC RBC Hgb Hct MCV MCH MCHC RDW Plt Count MPV Immature Gran % Seg Neutrophils % Lymphocytes % Monocytes % Eosinophils % Basophils % Neutrophils # Lymphocytes # Monocytes # Eosinophils # Basophils # POC Glucose 144 H 126 H 195 H 12/24/16 12/24/16 12/24/16 21:55 20:07 16:12 WBC 10.0 RBC 3.58 L Hgb 11.4 L Hct 35.6 MCV 99.4 MCH 31.8 MCHC 32.0 RDW 13.8 Plt Count 292 MPV 10.6 Immature Gran % 0.7 Seg Neutrophils % 63.9 Lymphocytes % 21.5 Monocytes % 10.7 Eosinophils % 2.8 Basophils % 0.4 Neutrophils # 6.4 Lymphocytes # 2.2 Monocytes # 1.1 Eosinophils # 0.3 Basophils # 0.0 POC Glucose 122 H 146 H - Attending Attestation I examined this patient and my medical decision-making was reviewed with the [facility] PATROL/PA/Advanced Practice Nurse/Resident Physician. I agree with the documented findings, disposition and treatment plan as described except to the extent set forth below. <Waqas De Leon T - Last Filed: 12/25/16 17:17> - Discharge Diagnosis (1) Enterocutaneous fistula Status: Resolved General Surgery Exam Initial Vital Signs Temp Pulse Resp BP Pulse Ox 98.4 F 88 15 143/86 97 12/15/16 14:37 12/15/16 14:37 12/15/16 14:37 12/15/16 14:37 12/15/16 14:37 Date of admission: 12/16/16 06:49 Primary care physician: Janice Almendarez Consults: 12/16/16 10:09 Consult to Manager Assurance [CONS] Routine Reason for SW Consult: Pt alcoholic, poor nutrition 12/16/16 12:19 Consult to Invasive Line Access Team [CONS] Routine Reason for Consult: Picc Line Insertion Line Type: PICC 12/19/16 10:30 Consult to Occupational Therapy [CONS] Routine Comment: Evaluate, develop and implement POC Consult to Physical Therapy [CONS] Routine Comment: Evaluate, develop and implement POC - Hospital Course Hospital course: Ms. Hernandez is a 46 year old female - Time Spent with Patient Total time spent providing and/or coordinating discharge services: Labs on day of discharge: Labs from last 24 hours 12/25/16 12/25/16 12/25/16 08:13 04:38 00:31 WBC RBC Hgb Hct MCV MCH MCHC RDW Plt Count MPV Immature Gran % Seg Neutrophils % Lymphocytes % Monocytes % Eosinophils % Basophils % Neutrophils # Lymphocytes # Monocytes # Eosinophils # Basophils # POC Glucose 144 H 126 H 195 H 12/24/16 12/24/16 21:55 20:07 WBC 10.0 RBC 3.58 L Hgb 11.4 L Hct 35.6 MCV 99.4 MCH 31.8 MCHC 32.0 RDW 13.8 Plt Count 292 MPV 10.6 Immature Gran % 0.7 Seg Neutrophils % 63.9 Lymphocytes % 21.5 Monocytes % 10.7 Eosinophils % 2.8 Basophils % 0.4 Neutrophils # 6.4 Lymphocytes # 2.2 Monocytes # 1.1 Eosinophils # 0.3 Basophils # 0.0 POC Glucose 122 H - Attending Attestation The patient is seen and evaluated on morning rounds with the resident. She is much improved and is tolerating her diet. Ween TPN to off and trial regular diet. Discharge is successful. F/u Moises Garcia MD FACS
--- NOTE | 2016-12-25 15:03 | Physician Discharge Referral ---
<James Funez - Last Filed: 12/25/16 15:01> Home Health/Hosp Referral Info Transfer to: Home Health Attending Provider: Dr. Waqas De Leon Provider in Charge Post Discharge: Other (Dr. Waqas De Leon and PCP) - Diagnosis (1) Enterocutaneous fistula Priority: Primary Status: Resolved (2) Protein-calorie malnutrition, severe Priority: Secondary Status: Acute (3) Anxiety and depression Priority: Secondary Status: Chronic (4) GERD (gastroesophageal reflux disease) Priority: Secondary Status: Chronic (5) Cirrhosis with alcoholism Priority: Secondary Status: Acute - Respiratory Orders Smoking Cessation: Smoking cessation has been advised. For more information, call the [place] Tobacco Quit Line at 2-447-GXTD-NOW. - Dressing/Wound Care Site: Right groin wound- cleanse with soap and water, pack with iodoform gauze, cover with 4X4 gauze, tape to secure daily Type of Dressing/Treatments w/Frequency: Right groin wound- cleanse with soap and water, pack with iodoform gauze, cover with 4X4 gauze, tape to secure daily - Diet/Nutrition Diet/Nutrition Orders: Regular - Activity Activity Orders: Up ad bakari Activity: List: May shower, no tub bath X 2 weeks Wash incisions with soap and water and pat dry daily Right groin wound- cleanse with soap and water, pack with iodoform gauze, cover with 4X4 gauze, tape to secure daily No lifting/pushing/pulling greater than 15 lb. for a total of 6 weeks from the date of surgery No driving until off narcotics for at least 24 hours and able to safely react in the car May climb stairs - Services Needed Following services are medically necessary services: Nursing, Physical Therapy, Occupational Therapy - Transfer Medications Prescriptions: OxyCODONE Immed Rel [Roxicodone 5 MG] 10 mg PO Q6HR PRN #49 tablet PRN Reason: Severe Pain Home Medications: Dicyclomine [Bentyl] 10 mg PO QID 06/06/16 [History] Folic Acid 1 mg PO DAILY 06/06/16 [History] Megestrol Acetate [Megace] 40 mg PO BID 06/06/16 [History] Pantoprazole Sodium [Protonix] 40 mg PO QAM 06/06/16 [History] Docusate Sodium 100 mg PO DAILY 11/17/16 [History] Multivitamin/Iron/Folic Acid [Centrum Complete Multivit Tab] 1 each PO DAILY 03/28 [History] Albuterol Sulfate [Albuterol Inhaler] 2 puff IH Q6H PRN 12/15/16 [History] Budesonide/Formoterol 160/4.5 [Symbicort 160/4.5] 4.5 aerosol IH BID 12/15/16 [ History] Disulfiram [Antabuse] 500 mg PO DAILY 12/15/16 [History] Lamotrigine [Lamictal] 25 mg PO DAILY 12/15/16 [History] Lipase/Protease/Amylase [Creon Dr 12,000 Units Capsule] 1 each PO BID #0 [Rx] OxyCODONE Immed Rel [Roxicodone 5 MG] 10 mg PO Q6HR PRN #49 tablet 12/25/16 [Rx] Allergies/Adverse Reactions: Allergies No Known Allergies Allergy (Verified 12/15/16 14:36) Certification: Further, I certify that my clinical findings support that this patient is homebound (i.e. absences from home require considerable and taxing effort and are for medical reasons or episcopalian services or infrequently or short duration when for other reasons) because: Homebound Reason: Leaving home requires considerable and taxing effort due to condition Attestation: My signature below is to certify that this patient is under my care and that I, or nurse practitioner, or a physician's visual merchandising assistant working with me, has a face-to -face encounter with this patient. <Waqas De Leon - Last Filed: 12/25/16 17:19> - Diagnosis (1) Enterocutaneous fistula Status: Resolved - Respiratory Orders Smoking Cessation: Smoking cessation has been advised. For more information, call the [place] Tobacco Quit Line at 6-659-UPFO-NOW. Certification: Further, I certify that my clinical findings support that this patient is homebound (i.e. absences from home require considerable and taxing effort and are for medical reasons or episcopalian services or infrequently or short duration when for other reasons) because: Attestation: My signature below is to certify that this patient is under my care and that I, or nurse practitioner, or a physician's visual merchandising assistant working with me, has a face-to -face encounter with this patient. The patient is seen and evaluated this morning on rounds with the resident. Ready for discharge. Questions answered. Waqas De Leon MD FACS
== END 2016-12-25 16:15 | disposition home health service (06) | DRG 221 ==
LOC: 3ANU 14:13 → EMEROO 14:13 → 3ANU 19:45
PROVIDERS: ADMIT Surgery; ATTEND Surgery

== ENCOUNTER 2019-01-26 18:44 | Inpatient (IN) ==
[2019-01-26] MEDS ORDERED: Isovue-370 500 ML BOTTLE IVP ONE (19:13)
[2019-01-26] MEDS ORDERED: *HR* FentaNYL (PF) 100 MCG/2 ML VIAL IVP ONE (20:01)
[2019-01-26] MEDS ORDERED: Azithromycin 500 MG in D5% in Water 250 ML IVPB STA (20:55)
[2019-01-26] MEDS ORDERED: methylPREDNISolone 125 MG/2 ML VIAL IVP ONE (20:55)
[2019-01-26] MEDS ORDERED: 0.9 % Sodium Chloride 1,000 ML IVC ONE (20:56)
--- NOTE | 2019-01-26 21:40 | Emergency Department Note ---
Disposition Clinical Impression: COPD exacerbation Disposition: Admitted As Inpatient Condition: Fair General Adult HPI - General Chief complaint: ED Shortness of Breath/Dyspnea Stated complaint: from [place], possible pe Time Seen by Provider: 01/26/19 18:49 Source: EMS Limitations: no limitations Nursing Notes Reviewed: Yes Vital Signs Reviewed: Yes - History of Present Illness HPI Narrative: 48-year-old female presents to the emergency department at [facility] for evaluation of dyspnea. Patient was evaluated at [facility] emergency department mainly prior to this and they were unable to obtain IV access in order to rule out PE with a CTA. They did not have VQ scan capabilities. Patient was sent to the emergency department for further evaluation. Patient initially reported chest pain in the epigastrium which was worse with movement and with palpation. Patient states she has been increasingly short of breath over the past week. Laboratory evaluation at [facility] revealed lactic acidosis and an elevated troponin. Pain Scale: 6 - Related Data Home Medications Medication Instructions Recorded Confirmed RX: Dicyclomine [Bentyl] 10 mg PO QID 06/06/16 12/15/16 RX: Folic Acid 1 mg PO DAILY 06/06/16 12/15/16 RX: Megestrol Acetate [Megace] 40 mg PO BID 06/06/16 12/15/16 RX: Pantoprazole Sodium [Protonix] 40 mg PO QAM 06/06/16 12/15/16 RX: Docusate Sodium 100 mg PO DAILY 11/17/16 12/15/16 RX: Multivitamin/Iron/Folic Acid 1 each PO DAILY 11/17/16 12/15/16 [Centrum Complete Multivit Tab] RX: Albuterol Sulfate [Albuterol 2 puff IH Q6H PRN 12/15/16 12/15/16 Inhaler] RX: Budesonide/Formoterol 160/4.5 4.5 aerosol IH BID 12/15/16 12/15/16 [Symbicort 160/4.5] RX: Disulfiram [Antabuse] 500 mg PO DAILY 12/15/16 12/15/16 RX: lamoTRIgine [Lamictal] 25 mg PO DAILY 12/15/16 12/15/16 Previous Rx's Medication Instructions Recorded OxyCODONE Immed Rel [Roxicodone 5 10 mg PO Q6HR PRN #49 tablet 12/25/16 MG] RX: Lipase/Protease/Amylase [Creon 1 each PO BID #0 12/25/16 Dr 12,000 Units Capsule] Allergies Allergy/AdvReac Type Severity Reaction Status Date / Time No Known Allergies Allergy Verified 12/15/16 14:36 All systems ED: reviewed and negative except as stated. Review of Systems: As Per HPI Past Medical History - Past Medical History Attestation: Yes The following information was validated with the patient. Source: patient Medical history: Reports: asthma, cirrhosis, COPD, GERD, hepatitis, hypertension, thyroid disease, other Surgical history: Reports: no surgical history, other Psychiatric history: Reports: anxiety, depression VENDING ATTENDANT history: Reports: endometriosis - Social History Smoking Status: Current every day smoker Smokeless Tobacco Status: No Alcohol use: Reports: heavy Drug use: Reports: none Physical Exam General: Alert and in no acute distress, very thin and malnourished appearing Skin: Warm, dry, intact Head: Normocephalic and atraumatic Neck: Supple, trachea midline and no tenderness Cardiovascular: RRR, no murmur, normal perfusion Respiratory: Poor air movement on bilateral posterior lung plasencia with mild wheezing. Musculoskeletal: Normal strength, no tenderness, swelling or deformity GI: Soft, nontender, nondistended. Bowel sounds present Neuro: A&O to person, place, time and situation. No focal deficits noted on exam Psychiatric: cooperative and appropriate mood and affect. - General Limitations: no limitations General appearance: alert Course Vital Signs Temperature 98.4 F 01/26/19 19:13 Pulse Rate 96 01/26/19 19:13 Respiratory Rate 22 01/26/19 19:13 Blood Pressure 100/66 01/26/19 19:13 O2 Sat by Pulse Oximetry 97 01/26/19 19:13 Temperature 98.2 F 01/27/19 00:41 Pulse Rate 83 01/27/19 00:41 Respiratory Rate 28 01/27/19 00:41 Blood Pressure 104/81 01/27/19 00:41 O2 Sat by Pulse Oximetry 96 01/27/19 01:31 Oxygen Delivery Oxygen Delivery Room Air Medical Decision Making - MDM Narrative Medical decision making narrative: Patient reports shortness of breath with exertion that is worse over the past week. Does feel similar to her previous COPD exacerbations. CTA of the chest did not show evidence of acute PE. Patient will be admitted to the hospitalist for further care and evaluation. She was given Solu-Medrol and azithromycin emergency department. CT did show evidence of chronic pancreatitis which the patient agrees is in her past medical history. - Medical Records Medical records reviewed: Yes I reviewed the patient's medical records. - Lab Data Lab results reviewed: Yes I reviewed the patient's lab results. Lab Results 01/26/19 Range/Units 21:17 Lactic Acid 3.3 H (0.5-2.2) mmol/L - Radiology Data Radiology results reviewed: Yes I reviewed the patient's radiology results.
[2019-01-27] MEDS ORDERED: Albuterol 2.5 MG/3 ML NEBULIZER IH PRN (03:11)
[2019-01-27] MEDS ORDERED: Ondansetron 4 MG/2 ML VIAL IVP PRN (03:11)
[2019-01-27] MEDS ORDERED: Naloxone 0.4 MG/ML INJ IVP PRN (03:11)
[2019-01-27] MEDS ORDERED: 0.9 % Sodium Chloride w KCl 20 MEQ/1,000 ML MLS IVC SCH (03:15)
[2019-01-27] MEDS ORDERED: *HR* LORazepam 2 MG/ML VIAL IVP PRN (03:17)
[2019-01-27] MEDS: Acetaminophen 325 MG TABLET PO PRN ×2 (03:48→14:24)
[2019-01-27] MEDS ORDERED: Vancomycin (wt based) 1,000 MG VIAL IVPB SCH (04:00)
[2019-01-27] MEDS: Ipratropium/Albuterol Neb 3 ML IH SCH ×4 (04:53→15:19)
--- NOTE | 2019-01-27 04:53 | Internal Med History&Physical ---
Date of Encounter: 01/27/19 Time of Encounter: 02:20 Internal Medicine - H&P: HPI Chief complaint: SOB Admitted From: Emergency Dept Plans for Post Hospital Care: Home History of present illness: Ms. Hernandez is a 48 year old female who presents to our ER in transfer from [facility] ER. She presented to [place] ER with complaints of significant shortness of breath, chest tightness, cough, and dehydration. There was a high clinical concern of possible PE. However, they were unable to scan her at [place] and had no IV access. She was therefore sent to our ER where she had an IV placed and she underwent CT angiogram to rule out PE. PE study was negative. However, she did have significant right-sided pleural effusion. She was therefore admitted to the hospitalist service. Upon my assessment of the patient, she and her daughter both complained that she has had significant cough, wheezing, shortness of breath, and extreme fatigue over the last several days. She has had reported fevers but no chills or night sweats. She denies any hemoptysis. Appetite and fluid intake have been very poor. Regarding her alcohol intake history, she still continues to drink on a daily basis, but she downplays her alcohol intake significantly. She denies any history of recent GI blood loss. She does have a history of chronic pancreatitis and notes that she has been having increasing epigastric abdominal pain. I reviewed her CT angiogram of the chest which confirmed a significant right- sided pleural effusion. She also has a history of cirrhosis, but she denies any history of variceal bleeds. Past Med Surg Social Fam HX - Past Medical History Attestation: Yes The following information was validated with the patient. Source: patient, old records reviewed, obtained from family Medical history: asthma, cirrhosis, COPD, GERD, hepatitis, hypertension, thyroid disease, other Additional medical history: chrons Psychiatric history: anxiety, depression - Past Surgical History Surgical History: no surgical history, other Additional surgical history: Stents in pancrease, - Social History Smoking Status: Current every day smoker Packs per day: 1.5 Smokeless Tobacco Status: No Alcohol use: heavy Drug use: none Current living situation: Home, With Family Activity Level: Independent ambulation Recent Out of Country Travel Within the Last 8 Weeks: No - Family History Grandmother Adopted: No Family Member Ethnicity: Non- Living Status: Hx Family Cardiac Disorders: No Hx Family Respiratory Disorders: No Hx Family Cancer: No Hx Family GI Disorders: No Hx Family Endocrine Disorder: No Hx Family Neuromuscular Disorders: No Hx Family Neurologic Disorders: No Hx Family HEENT Disorders: No Hx Family Autoimmune Disorders: No Internal Medicine - H&P: Meds Dicyclomine [Bentyl] 10 mg PO QID 06/06/16 [History] Folic Acid 1 mg PO DAILY 06/06/16 [History] Megestrol Acetate [Megace] 40 mg PO BID 06/06/16 [History] Pantoprazole Sodium [Protonix] 40 mg PO QAM 06/06/16 [History] Docusate Sodium 100 mg PO DAILY 11/17/16 [History] Multivitamin/Iron/Folic Acid [Centrum Complete Multivit Tab] 1 each PO DAILY 11/17/16 [History] Albuterol Sulfate [Albuterol Inhaler] 2 puff IH Q6H PRN 12/15/16 [History] Budesonide/Formoterol 160/4.5 [Symbicort 160/4.5] 4.5 aerosol IH BID 12/15/16 [History] Disulfiram [Antabuse] 500 mg PO DAILY 12/15/16 [History] lamoTRIgine [Lamictal] 25 mg PO DAILY 12/15/16 [History] Lipase/Protease/Amylase [Creon Dr 12,000 Units Capsule] 1 each PO BID #0 12/25/16 [Rx] OxyCODONE Immed Rel [Roxicodone 5 MG] 10 mg PO Q6HR PRN #49 tablet 12/25/16 [Rx] Allergy/AdvReac Type Severity Reaction Status Date / Time cefoxitin Allergy Anaphylaxis Verified 01/27/19 03:26 - Constitutional Constitutional: fatigue, weakness, no chills, no fever(s), no night sweats - EENT Eyes: no blurry vision, no change in vision Ears: no ear pain, no tinnitus Nose, mouth and throat: no nasal congestion, no sinus pressure, no sore throat - Cardiovascular Cardiovascular ROS IM: no chest pain, no diaphoresis, no orthopnea, no paroxysmal nocturnal dyspnea, no syncope - Respiratory Respiratory: cough, dyspnea, wheezing, chest congestion, excessive phlegm production, change in phlegm color, no hemoptysis, no pain with cough - Gastrointestinal Gastrointestinal: no abdominal pain, no diarrhea, no hematemesis, no hematochezia, no melena, no vomiting - Genitourinary Genitourinary: no dysuria, no flank pain, no hematuria - Musculoskeletal Musculoskeletal ROS IM: no arthralgias, no back pain - Integumentary Integumentary IM: no erythema, no rash, no jaundice - Neurological Neurological ROS: no dizziness, no focal weakness, no frequent falls - Psychiatric Psychiatric: anxiety, no depression - Endocrine Endocrine IM: no polydipsia, no polyphagia, no polyuria - Allergic/Immunologic Allergic/Immunologic: wheezing, no GI upset with certain foods - Constitutional Vitals: Temp Pulse Resp BP Pulse Ox 97.5 F L 80 20 102/67 95 01/27/19 04:09 01/27/19 04:09 01/27/19 04:09 01/27/19 04:09 01/27/19 04:09 General appearance: Present: cooperative, disheveled, A&O X 3, pleasant, answers questions appropriately Exam: appears to have physical stigmata of pulmonary cachexia - Head Head exam: Present: atraumatic, normal inspection - Eye Eye exam: Present: EOMI, PERRL. Absent: scleral icterus Pupils: Present: normal accommodation - ENT ENT exam: Present: mucous membranes dry, normal exam, normal oropharynx - Neck Neck exam general surgery: Present: full ROM, supple, trachea midline. Absent: lymphadenopathy, tenderness, nuchal rigidity, thyromegaly - Respiratory Respiratory exam: Present: accessory muscle use, prolonged expiratory phase, respiratory distress, rhonchi, wheezes, tachypnea. Absent: rales, stridor - Cardiovascular Cardiovascular exam: Present: RRR, +S1, +S2, systolic murmur. Absent: diastolic murmur - GI/Abdominal GI/Abdominal exam: Present: normal bowel sounds, soft, tenderness (epigastric). Absent: guarding, hepatomegaly, mass, rebound, splenomegaly - Extremities Exam Extremities exam: Present: full ROM, radial pulses palpable and symmetrical. Absent: calf tenderness, joint swelling, normal capillary refill, pedal edema, tenderness, warm - Back Exam Back exam: Absent: CVA tenderness (L), CVA tenderness (R) - Neurological Exam Neurological exam: Present: alert, CN II-XII intact, normal gait, no focal deficits, strengths equal and symetr throughout. Absent: motor sensory deficit - Psychiatric Psychiatric exam: Present: anxious - Skin Skin exam: Present: dry, intact, warm Internal Med - H&P Results - Labs Labs: I reviewed her labs from [place] and include the following: WBC 5.3 Hemoglobin 13.2 Hematocrit 38.1 Platelet count 118 Sodium 135 Potassium 3.7 Chloride 100 Carbon dioxide 25 BUN 8 Creatinine 0.41 Lactic acid 4.3, repeat after fluid resuscitation is 3.3 - Impressions ITS Impressions Chest CTA 01/26/19 19:13 IMPRESSION: No evidence of pulmonary embolism. Moderate right pleural effusion. Heterogenous attenuation of the liver most likely represents fatty infiltration with areas of fatty sparing. MRI of the abdomen with a liver protocol may be helpful for confirmation. Diffuse calcification within the partially visualized pancreas consistent with chronic pancreatitis. Centrilobular emphysematous changes. D/ / Zach Beasley / Zach Beasley Interpreting Provider: Zach Beasley - Diagnostic Studies CT scan - chest Status: image reviewed by me (moderate to large right pleural effusion) - Assessment and Plan (1) Pneumonia Current Visit: Yes Status: Suspected Assessment and plan: 1. Will follow blood culture form [facility]. 2. Will order sputum culture. 3. Will star on antibiotics, aerosols, and oxygen. Qualifiers: Pneumonia type: due to unspecified organism Laterality: right Lung location: lower lobe of lung Qualified Code(s): J18.1 - Lobar pneumonia, unspecified organism (2) Pleural effusion Current Visit: Yes Status: Acute Assessment and plan: 1. Will consult IR to proceed with thoracentesis. 2. Pleural fluid labs ordered. 3. Patient in moderate respiratory distress due to effusion. (3) Sepsis Current Visit: Yes Status: Acute Assessment and plan: 1. Will trend lactate and follow cultures. 2. Patient fluid resuscitated in ER at [place]. 3. Will continue IVF and follow hemodynamics. 4. Antibiotics as above. Qualifiers: Sepsis type: sepsis due to unspecified organism Qualified Code(s): A41.9 - Sepsis, unspecified organism (4) Chronic pancreatitis Current Visit: Yes Status: Chronic Assessment and plan: 1. Will monitor amylase/lipase and clinical exam. 2. Will place on CIWA protocol and monitor for etoH withdrawal. Qualifiers: Pancreatitis type: alcohol induced Qualified Code(s): K86.0 - Alcohol- induced chronic pancreatitis (5) DVT prophylaxis Current Visit: Yes Status: Acute Assessment and plan: 1. Heparin SQ.
[2019-01-27 04:58] LABS: Basophils % 0.2 %; Hemoglobin 12.6 g/dL (11.5-15.4); Immature Granulocytes % 0.2 % (0-4); Lymphocytes # 0.6 K/mcL (0.6-4.6); Lymphocytes % 10.7 %; Mean Corpuscular HGB Conc 33.2 g/dL (31.6-35.5); Mean Corpuscular Hemoglobin 37.8 pg (28.0-33.3); Mean Corpuscular Volume 114.1 fL (83.0-100.0); Mean Platelet Volume 10.6 fL (9.4-12.4); Monocytes # 0.1 K/mcL (0.0-1.3); Monocytes % 1.2 %; Neutrophils # 4.5 K/mcL (1.6-8.9); Platelet Count 109 K/mcL (140-400); Red Blood Count 3.33 M/mcL (3.82-4.97); Red Cell Distribution Width 14.6 % (11.5-14.5); Segmented Neutrophils % 87.7 %
[2019-01-27 05:08] LABS: INR 1.7; Prothrombin Time 19.7 Seconds (9.4-12.1)
[2019-01-27 05:11] LABS: Activated Partial Thrombo Time 40.4 Seconds (26.0-36.0)
[2019-01-27 05:17] LABS: Macrocytosis Present (Not Present); Platelet Estimate Decreased (Normal)
[2019-01-27 05:18] LABS: Tear Drop Cells 1+ (Not Present)
[2019-01-27 05:21] LABS: Alanine Aminotransferase 22 Units/L (7-52); Albumin 2.1 g/dL (3.5-5.7); Albumin/Globulin Ratio 0.7 (1.1-2.2); Alkaline Phosphatase 408 Units/L (34-104); Amylase 12 Units/L (29-103); Aspartate Amino Transferase 79 Units/L (13-39); BUN/Creatinine Ratio 33 (6-26); Bilirubin,Total 2.8 mg/dL (0.3-1.0); Blood Urea Nitrogen 8 mg/dL (6-20); Calcium 6.9 mg/dL (8.6-10.3); Carbon Dioxide 19 mEq/L (23-29); Chloride 104 mEq/L (98-107); Globulin 3.1 g/dL (2.4-3.5); Glucose 192 mg/dL (70-105); Lipase < 3 Units/L (11-82); Magnesium 1.4 mg/dL (1.6-2.6); Osmolality,Calculated 274 (280-300); Phosphorous 2.8 mg/dL (2.7-4.5); Potassium 4.6 mEq/L (3.5-5.1); Sodium 130 mEq/L (136-145); Total Protein 5.2 g/dL (6.4-8.9); eGFR For Non-African Americans > 60 (> 60)
[2019-01-27 05:42] LABS: Troponin I 0.12 ng/mL (< 0.04)
[2019-01-27] MEDS: *HR* Heparin 5,000 UNIT/ML VIAL SQ SCH ×2 (06:55→17:06)
[2019-01-27] MEDS: Pantoprazole 40 MG VIAL IVP SCH ×2 (06:55→17:06)
[2019-01-27] MEDS ORDERED: Folic Acid 1 MG TABLET PO SCH (09:00)
[2019-01-27] MEDS ORDERED: Vitamin B Complex/Vit C/Vit E 1 EACH TABLET PO SCH (09:00)
[2019-01-27] MEDS ORDERED: Thiamine (B-1) 100 MG TABLET PO SCH (09:00)
[2019-01-27] MEDS ORDERED: Levofloxacin 750 MG/150 ML 750 MG/150 ML BAG IVPB SCH (09:00)
[2019-01-27] MEDS ORDERED: *HR* OxyCODONE/APAP 5/325 TABLET PO ONE (10:07)
--- NOTE | 2019-01-27 10:16 | Procedure Note ---
Date of procedure: 01/27/19 Pre-op diagnosis: Pleural effusion Post-op diagnosis: same Procedure: Diagnostic thoracentesis: Written consent was obtained from the patient. Patient was placed in the sitting position. Using ultrasound a pocket of pleural fluid was identified in the right pleural space. The patient was cleaned and draped in the usual sterile fashion. 4 mL of 1% lidocaine were used to anesthetize these skin and subcutaneous tissues. A 23-gauge needle was advanced into the pleural space and clear straw-colored fluid was returned. Approximately 15 mL of fluid was obtained and sent to lab for analysis. The needle was then withdrawn intact. Band-Aid was placed over the site. The patient tolerated the procedure well,, there are no immediate complications. Postprocedure chest x-ray is pending. Anesthesia: local (4 mL 1% lidocaine) Surgeon: Rob Marley Was there an sociology research assistant present: No Estimated blood loss (cc): 0 Specimen: Pleural fluid Pathology: other (Pleural fluid) Condition: stable Disposition: floor
--- NOTE | 2019-01-27 10:20 | Event Note ---
Date of Encounter: 01/27/19 Time of Encounter: 10:16 Patient was seen and examined at bedside. Patient states that she feels better. She still reports pain in her upper abdomen and on the left side of her back. She states her shortness of breath has resolved. She reports occasional dry cough Lungs: Clear to auscultation bilaterally Abdomen: Soft, mildly tender in the epigastric and right upper quadrant. Normal active bowel sounds Assessment and plan: Pneumonia, less likely given CT findings. Given her shortness of breath and history of COPD we will continue Levaquin COPD exacerbation: Continue antibiotics, steroids, breathing treatments Pleural effusion: Etiology unclear, diagnostic thoracentesis performed, concern for underlying malignancy
[2019-01-27 10:24] LABS: Troponin I 0.05 ng/mL (< 0.04)
[2019-01-27] MEDS ORDERED: predniSONE 20 MG TABLET PO SCH (10:30)
[2019-01-27 11:14] VITALS: BP 94/66
[2019-01-27 15:01] LABS: Appearance of Pleural Fl Hazy (Clear); Volume of Pleural Fluid 13.5 mL
[2019-01-27 15:25] LABS: Amylase,Pleural Fluid < 10 Units/L (No Ref Range); Glucose,Pleural Fluid 210 mg/dL (No Ref Range); LDH,Pleural Fluid 28 Units/L (No Ref Range); Total Protein,Pleural Fluid < 3.0 g/dL (No Ref Range)
[2019-01-27 15:45] LABS: RBC,Pleural Fluid < 0.002 M/mcL
[2019-01-27] MEDS ORDERED: Nicotine 21 MG PATCH.TD24 TD SCH (16:00)
[2019-01-29 08:19] LABS: Fluid Source for Cholesterol PLEURAL FLUID
[2019-01-29 10:08] LABS: Cholesterol,Body Fluid 5 mg/dL
== END 2019-01-27 18:46 | disposition left against medical advice (07) | DRG 187 ==
LOC: 2NENU 18:44 → EMEROOARM 18:44 → 2NENU 01-27 00:07 → SUATTDRO 01-27 03:11
PROVIDERS: ADMIT Pediatrics; ATTEND Internal Medicine